=== PATIENT | male | born 1955 | race Caucasian/White ===

== ENCOUNTER 2017-01-25 22:01 | Inpatient (IN) ==
[2017-01-25] MEDS ORDERED: 0.9 % Sodium Chloride 1,000 ML IVC ONE (22:41)
--- NOTE | 2017-01-25 22:49 | Emergency Department Note ---
Disposition Clinical Impression: Ureterolithiasis Leukocytosis Qualifiers: Leukocytosis type: unspecified Qualified Code(s): D72.829 - Elevated white blood cell count, unspecified Disposition: Admitted As Inpatient Condition: Fair [facility]: [facility]Primary Care Provider[facility] - Forms: Work/School Release, ED Satisfaction Letter Time of Disposition: 23:59 Abdominal Pain HPI - General Chief Complaint: ED Abdominal Pain Stated Complaint: abd pain Time Seen by Provider: 01/25/17 22:04 Source: patient, EMS Nursing Notes Reviewed: Yes Vital Signs Reviewed: Yes - History of Present Illness HPI Narrative: 61-year-old male presents by EMS from the [facility] urgent care after initial evaluation for right lower quadrant abdominal pain and right flank pain that initially began this past Sunday. The patient has underwent laboratory testing as well as a CT of the abdomen and pelvis. He was found to have marked leukocytosis and was subsequently transferred to this facility for further evaluation. He states that he has had some nausea and vomiting upon the onset of symptoms, however has not had any vomiting since the day of onset. He complains of subjective fevers and chills. He also complains of approximately one month worth of dysuria. He denies any donnell hematuria or penile discharge. Pt Subjective Complaint: abdominal pain, flank pain Onset (ago): day(s) Consistency: constant Location: RLQ, R flank Pain Severity: moderate Pain Scale: 5 Quality: aching Radiation: R flank Improves with: nothing Worsens with: nothing Associated symptoms: Reports: nausea, vomiting, fever, chills, dysuria - Related Data Allergies Allergy/AdvReac Type Severity Reaction Status Date / Time No Known Allergies Allergy Verified 01/25/17 22:02 All systems ED: reviewed and negative except as stated. Constitutional: Reports: as per HPI, fever, chills. Denies: weakness, weight change Eyes: Denies: eye pain, eye discharge, vision change ENT ED: Denies: ear pain, throat pain, dental pain, hearing loss, epistaxis, congestion, dysphagia Cardiovascular: Denies: chest pain, palpitations, dyspnea on exertion, edema, syncope Respiratory: Denies: cough, dyspnea, wheezes, hemoptysis, stridor Gastrointestinal: Reports: as per HPI, abdominal pain, nausea, vomiting. Denies : diarrhea, constipation, hematemesis, melena, hematochezia Genitourinary: Reports: as per HPI, dysuria. Denies: urgency, frequency, hematuria Musculoskeletal: Reports: as per HPI, other (Right flank pain). Denies: back pain, neck pain, arthralgia, myalgia Integumentary: Denies: rash, abrasion, lesions Neurological: Denies: headache, weakness, numbness, paresthesias, confusion, abnormal gait, vertigo Psychiatric: Denies: anxiety, depression, suicidal thoughts, homicidal thoughts , auditory hallucinations, visual hallucinations Endocrine: Denies: fatigue Hematological/Lymphatic: Denies: easy bleeding, easy bruising Allergic/Immunologic: Denies: facial swelling, urticaria Abdominal Pain PMH - Past Medical History Medical history: Reports: arthritis, hyperlipidemia Male Surgical History: Reports: non-contributory Psychiatric history: Reports: other - Social History Smoking status: Current some day smoker Alcohol use: Reports: rarely Drug use: Reports: none Physical Exam - General Limitations: no limitations General appearance: alert, in no apparent distress - Head Head exam: atraumatic, normocephalic, normal inspection - Eye Eye exam: Present: normal appearance, PERRL, EOMI. Absent: nystagmus - ENT ENT exam: mucous membranes moist - Neck Neck exam: Present: normal inspection, full ROM, trachea midline - Respiratory Respiratory exam: Present: normal lung sounds bilaterally - Cardiovascular Cardiovascular exam: Present: regular rate, normal rhythm, normal heart sounds - Abdominal Exam Abdominal exam: Present: soft, tenderness, normal bowel sounds, tenderness at McBurney's Point. Absent: distention, guarding, rebound, rigidity Abdominal tenderness: Present: RLQ - Extremities Exam Extremities exam: Present: normal inspection, full ROM. Absent: tenderness, pedal edema - Back Exam Back exam: Present: full ROM, tenderness, CVA tenderness (R). Absent: CVA tenderness (L) - Neurological Exam Neurological exam: Present: alert, oriented X3 - Psychiatric Psychiatric exam: Present: normal affect, normal mood - Skin Skin exam: Present: warm, dry, intact, normal color Course Course Narrative: 1124: Spoke with Dr. Elizondo, urology cable television access coordinator. Dr. Elizondo states that the patient should be admitted to the hospitalist service for IV antibiotics and urology will see the patient tomorrow morning. 0016: I spoke with Dr. Mckeon of the hospitalist service. Dr. Mckeon has accepted patient for admission to the hospitalist service. I discussed this plan with Dr. Gifford. Dr. Gifford has had a [id number] evaluation with patient and agrees with this plan. Vital Signs Temperature 98.4 F 01/25/17 22:03 Pulse Rate 106 01/25/17 22:03 Respiratory Rate 18 01/25/17 22:03 Blood Pressure 122/77 01/25/17 22:03 O2 Sat by Pulse Oximetry 96 01/25/17 22:03 Temperature 98.4 F 01/25/17 22:03 Pulse Rate 110 01/26/17 00:02 Respiratory Rate 16 01/26/17 00:02 Blood Pressure 119/83 01/26/17 00:02 O2 Sat by Pulse Oximetry 95 01/26/17 00:02 Oxygen Delivery Oxygen Delivery Room Air Abdominal Pain - Medical Records Medical records reviewed: Yes I reviewed the patient's medical records. - Lab Data Lab results reviewed: Yes I reviewed the patient's lab results. Lab results narrative: Laboratory results reviewed from the patient's visit at the [facility] urgent care just prior to arrival. Lab Results 01/25/17 01/25/17 Range/Units 22:30 23:33 Lactic Acid 1.0 (0.5-2.2) mmol/L Urine Color Yellow (Yellow) Urine Clarity Clear (Clear) Urine pH 7.5 (5.0-8.0) pH Units Ur Specific [place] 1.022 (1.010-1.025) Urine Protein 100 H (Neg-Trace) mg/dL Urine Glucose (UA) Normal (Normal) mg/dL Urine Ketones 15 H (Negative) mg/dL Urine Blood Negative (Negative) Urine Nitrite Negative (Negative) Urine Bilirubin Large H (Negative) Urine Urobilinogen 4.0 H (Normal) mg/dL Ur Leukocyte Esterase Small H (Negative) Urine Microscopic RBC 5-15 H (0-3) per hpf Urine Microscopic WBC 5-15 H (0-3) per hpf Ur Squamous Epith Cells Many H (None-Few) per lpf Urine Bacteria None Seen (None-Few) per hpf Hyaline Casts None Seen (None-Few) per lpf Ur Culture Indicated? YES A (NO)
[2017-01-25] MEDS ORDERED: *HR* Morphine 2 MG/ML SYRINGE IVP ONE ×2 (22:54→23:51)
[2017-01-25] MEDS ORDERED: Ondansetron 4 MG/2 ML VIAL IVP ONE (22:54)
[2017-01-25 23:10] LABS: Bilirubin,Urine Large (Negative); Blood,Urine Negative (Negative); Clarity,Urine Clear (Clear); Color,Urine Yellow (Yellow); Glucose,Urine (UA) Normal (Normal); Ketones,Urine 15 mg/dL (Negative); Leukocyte Esterase,Urine Small (Negative); Nitrite,Urine Negative (Negative); PH,Urine 7.5 pH Units (5.0-8.0); Protein,Urine 100 mg/dL (Neg-Trace); Specific Gravity,Urine 1.022 (1.010-1.025)
[2017-01-25 23:13] LABS: Bacteria,Urine None Seen per hpf (None-Few); Hyaline Casts,Urine None Seen per lpf (None-Few); Squamous Epithelial Cell,Urine Many per lpf (None-Few)
[2017-01-26] MEDS ORDERED: Naloxone 0.4 MG/ML INJ IVP PRN ×2 (00:59→15:29)
[2017-01-26] MEDS ORDERED: *HR* OxyCODONE Immed Rel 5 MG TABLET PO PRN (00:59)
[2017-01-26] MEDS ORDERED: Ondansetron 4 MG/2 ML VIAL IVP PRN ×2 (00:59→15:29)
[2017-01-26] MEDS ORDERED: Acetaminophen 325 MG TABLET PO PRN ×2 (00:59→15:29)
--- NOTE | 2017-01-26 01:07 | Internal Med History&Physical ---
<Isma Patricia - Last Filed: 01/26/17 01:04> Date of Encounter: 01/26/17 Time of Encounter: 01:04 Assessment and Plan (1) Acute pyelonephritis Current visit: Yes Status: Acute 61 M hx of nephrolithiasis presents from [place] urgent care with chief complaint of right lower quadrant pelvic pain onset 2 days ago with intractable nausea and vomiting. Last episode of vomiting was yesterday. CT abdomen and pelvis shows right mild hydroureteronephrosis WBC 26 Afebrile Tachycardic Lactic acid 1.0 UA: Leukocyte esterase, WBC Patient has sepsis secondary to acute pyelonephritis with likely infected stone. Plan: IVF, ceftriaxone, NPO urology notified and will assess patient in morning Pain control Nausea control GI prophylaxis (2) Leukocytosis Current visit: Yes Status: Acute Secondary to acute pyelonephritis Plan: WBC Blood cultures Urine cultures IV ceftriaxone Qualifiers: Leukocytosis type: unspecified Qualified Code(s): D72.829 - Elevated white blood cell count, unspecified (3) Ureterolithiasis Current visit: Yes Status: Acute History of ureterolithiasis CT abdomen/pelvis shows 3 mm stone in the right ureterovesicular junction with mild right hydroureteronephrosis Plan: IV fluids Ceftriaxone Urology notified (4) DVT prophylaxis Current visit: Yes Status: Acute Heparin subcutaneous Internal Medicine - H&P: HPI Chief complaint: abdominal pain Admitted From: Home Plans for Post Hospital Care: Home History of present illness: Mr. Toscano is a 61 year old male presents with chief complaint of right lower quadrant abdominal pain, sharp, radiating to the side and back worsens with movement and improves with narcotic pain medication. 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 Thereafter he had over 10 bouts of nausea and vomiting throughout the day. He reports subjective fevers and chills. He denies hematemesis, hemoptysis. Denies diarrhea, melena, hematochezia. Denies increased urinary frequency, hematuria. Reports dysuria. Patient has history of kidney stones with his first account in 1974. Patient denies previous history of kidney disease, kidney infections. He was always able to pass a kidney stone. He reports poor oral intake. Past Med Surg Social Fam HX - Past Medical History Medical history: arthritis, hyperlipidemia, other (Kidney stones) Psychiatric history: anxiety, other - Past Surgical History Surgical History: no surgical history - Social History Smoking Status: Current some day smoker Smokeless Tobacco Status: No Alcohol use: rarely Drug use: none - Family History Father Hx Family Neurologic Disorders: Yes (Dementia, stroke) Internal Medicine - H&P: Meds Etodolac 400 mg PO BID 01/26/17 [History] Gabapentin [Neurontin] 300 mg PO TID 01/26/17 [History] diazePAM [Valium] 2.5 mg PO QID PRN 01/26/17 [History] Allergies No Known Allergies Allergy (Verified 01/25/17 22:02) All Systems PM: A 10-system review of systems was performed and is negative for pertinent findings except as documented above in the HPI. Review of systems: Constitutional: Denies fever, chills HEENT: Denies headache, vision changes, sore throat, rhinorrhea Heart: Denies chest pain palpitations Lungs: Forced chronic shortness of breath, denies cough Abdomen: Reports right lower quadrant abdominal pain, nausea, vomiting. Denies diarrhea Back: Reports low back pain on right side Kidney: Reports dysuria, denies hematuria, urinary frequency Extremities: Denies swelling, pain Neuro: Denies numbness, and tingling - Constitutional Vitals: Temp Pulse Resp BP Pulse Ox 98.4 F 110 16 119/83 95 01/25/17 22:03 01/26/17 00:02 01/26/17 00:02 01/26/17 00:02 01/26/17 00:02 - Other Additional findings: General: Alert and oriented to place time and situation. Without distress HEENT: Head atraumatic, normocephalic, EOMI, PERRLA, neck nontender to palpation , absent Lymphadenopathy, dry mucous membranes Heart: Regular rate and rhythm with no murmur Lungs: Clear to auscultation bilaterally, diminished Abdomen: Soft, tender to palpation in the right lower quadrant, positive bowel sounds, absent organomegaly. Negative Rovsing's, negative Carcamo's Extremities: Absent pedal edema, Skin: Warm and dry : No discharge, bleeding, Neuro: Cranial nerves II through XII intact, sensation equal bilaterally, strength upper and lower extremity 5/5, alert oriented 3 Vascular: Pedal and radialpulses 2 out of 4 <Sky Mckeon - Last Filed: 01/26/17 02:19> Date of Encounter: 01/26/17 Internal Medicine - H&P: HPI History of present illness: Mr. Toscano is a 61 year old male All Systems PM: A 10-system review of systems was performed and is negative for pertinent findings except as documented above in the HPI. - Constitutional Vitals: Temp Pulse Resp BP Pulse Ox 98.0 F 103 16 114/77 93 01/26/17 01:23 01/26/17 01:23 01/26/17 01:23 01/26/17 01:23 01/26/17 01:23 - Attending Attestation I examined this patient and my medical decision-making was reviewed with the Resident Physician, Dr Isma Patricia. I agree with the documented findings, disposition and treatment plan as described except to the extent set forth below. My findings are summarized below: Patient presented to the hospital with lower abdominal pain and flank pain. He also complains of dysuria. This was associated with subjective fevers and chills. On exam he is in no acute distress. Heart is regular. Lungs are clear. Abdomen soft. Plan: We will admit and treat for pyelonephritis, sepsis and acute kidney injury with IV Zosyn and IV fluids. We will follow blood cultures and sensitivities.
[2017-01-26] MEDS: Piperacillin/Tazobactam 3.375 GM in D5% in Water (Mini-Bag+) 100 ML IVPB SCH ×3 (02:09→16:37)
[2017-01-26] MEDS: 0.9 % Sodium Chloride 1,000 ML IVC SCH ×3 (02:10→16:36)
[2017-01-26 03:02] LABS: Lymphocytes % 6.5 %
[2017-01-26 03:03] LABS: Basophils # 0.1 K/mcL (0.0-0.2); Basophils % 0.3 %; Eosinophils # 0.1 K/mcL (0.0-0.6); Eosinophils % 0.2 %; Hematocrit 36.9 % (37.5-50.1); Hemoglobin 12.4 g/dL (12.9-16.9); Immature Granulocytes % 0.6 % (0-4); Lymphocytes # 1.7 K/mcL (0.6-4.6); Mean Corpuscular HGB Conc 33.6 g/dL (31.6-35.5); Mean Corpuscular Hemoglobin 30.6 pg (28.0-33.3); Mean Corpuscular Volume 91.1 fL (83.0-100.0); Mean Platelet Volume 9.8 fL (9.4-12.4); Monocytes # 0.7 K/mcL (0.0-1.3); Monocytes % 2.8 %; Neutrophils # 23.3 K/mcL (1.6-8.9); Red Blood Count 4.05 M/mcL (4.19-5.50); Segmented Neutrophils % 89.6 %
[2017-01-26 03:05] LABS: Albumin 2.1 g/dL (3.5-5.0); Albumin/Globulin Ratio 0.6 (1.1-2.2); Calcium 8.4 mg/dL (8.6-10.8); Globulin 3.8 g/dL (2.4-3.5); Magnesium 1.7 mg/dL (1.6-2.6); Potassium 4.5 mEq/L (3.5-4.5); Total Protein 5.9 g/dL (6.0-8.3)
[2017-01-26 03:25] LABS: Hepatitis B Surface Antigen Nonreactive (Nonreactive)
[2017-01-26 03:32] LABS: Platelet Count 96 K/mcL (140-400)
[2017-01-26 03:33] LABS: Platelet Estimate Decreased (Normal)
[2017-01-26 03:34] LABS: Reactive Lymphocytes Present (Not Present)
[2017-01-26] MEDS: *HR* Morphine 2 MG/ML SYRINGE IVP PRN ×2 (05:09→09:16)
[2017-01-26] MEDS ORDERED: *HR* Heparin 5,000 UNIT/ML VIAL SQ SCH (06:00)
[2017-01-26] MEDS ORDERED: Famotidine 20 MG/2 ML VIAL IVP SCH (06:00)
--- NOTE | 2017-01-26 08:17 | Urology - Consult Note ---
Date of Encounter: 01/26/17 Time of Encounter: 08:15 - Assessment and Plan (1) Leukocytosis Current Visit: Yes Status: Acute Assessment and plan: Continue broad-spectrum antibiotics at this time. Qualifiers: Leukocytosis type: unspecified Qualified Code(s): D72.829 - Elevated white blood cell count, unspecified (2) Ureterolithiasis Current Visit: Yes Status: Acute Assessment and plan: Will plan on taking the patient to the operative room today for right ureteroscopic stone extraction and ureteral stent placement. If patient has gross pus with placement of wire will only plan on placing stent. Urology CN:HPI Consult date: 01/26/17 Reason for consult Urology: Hydronephrosis Requesting physician: Isma Patricia History of present illness: Wilson is a 61-year-old male with a history of recent trip to the [place] urgent care secondary to severe right-sided flank pain. Patient was found on CT scan to have distal 2-3 stones approximately 2-3 mm in size. Patient was also found to have an elevated the CBC count of 26,000. Patient with low-grade fevers this morning. Patient also with nausea and vomiting over the past week. Past Med Surg Social Fam HX - Past Medical History Medical history: arthritis, hyperlipidemia, other (Kidney stones) Psychiatric history: anxiety, other - Past Surgical History Surgical History: no surgical history - Social History Smoking Status: Current some day smoker Smokeless Tobacco Status: No Alcohol use: rarely Drug use: none - Family History Father Family Member Ethnicity: Non- Living Status: Hx Family Neurologic Disorders: Yes (Dementia, stroke) Hx Family Psychosocial Disorders: Yes Medications and Allergies Etodolac 400 mg PO BID 01/26/17 [History] Gabapentin [Neurontin] 300 mg PO TID 01/26/17 [History] diazePAM [Valium] 2.5 mg PO QID PRN 01/26/17 [History] Allergies No Known Allergies Allergy (Verified 01/25/17 22:02) Review of Systems - Constitutional fever(s) - EENT Nose, mouth and throat: no dizziness - Cardiovascular no chest pain - Respiratory no cough - Gastrointestinal abdominal pain - Genitourinary as per HPI - Musculoskeletal back pain - Integumentary no erythema - Neurological no confusion - Psychiatric no anxiety - Hematologic/Lymphatic no easy bleeding Exam Initial Vital Signs Temp Pulse Resp BP Pulse Ox 98.4 F 106 18 122/77 96 01/25/17 22:03 01/25/17 22:03 01/25/17 22:03 01/25/17 22:03 01/25/17 22:03 - General physical appearance Present: well developed - Eyes Present: PERRL - ENT Present: normal nares - Neck Present: no masses - Respiratory Present: normal respiratory effort - Cardiovascular Cardiovascular exam IM: RRR - Abdomen Abdomen: Present: soft - Integumentary Present: no rash - Neurologic Present: normal coordination Urology Results - Labs 01/26/17 02:43 01/26/17 02:43 Abnormal lab results WBC 26.0 K/mcL (4.3-11.1) H 01/26/17 02:43 RBC 4.05 M/mcL (4.19-5.50) L 01/26/17 02:43 Hgb 12.4 g/dL (12.9-16.9) L 01/26/17 02:43 Hct 36.9 % (37.5-50.1) L 01/26/17 02:43 Plt Count 96 K/mcL (140-400) L 01/26/17 02:43 Neutrophils # 23.3 K/mcL (1.6-8.9) H 01/26/17 02:43 Reactive Lymphocytes Present (Not Present) A 01/26/17 02:43 Platelet Estimate Decreased (Normal) L 01/26/17 02:43 BUN 38 mg/dL (8-26) H 01/26/17 02:43 Creatinine 1.67 mg/dL (0.72-1.25) H 01/26/17 02:43 Est GFR ( Amer) 51 (> 60) L 01/26/17 02:43 Est GFR (Non-Af Amer) 42 (> 60) L 01/26/17 02:43 Calcium 8.4 mg/dL (8.6-10.8) L 01/26/17 02:43 Alkaline Phosphatase 133 Units/L (38-126) H 01/26/17 02:43 Serum Total Protein 5.9 g/dL (6.0-8.3) L 01/26/17 02:43 Albumin 2.1 g/dL (3.5-5.0) L 01/26/17 02:43 Globulin 3.8 g/dL (2.4-3.5) H 01/26/17 02:43 Albumin/Globulin Ratio 0.6 (1.1-2.2) L 01/26/17 02:43 Urine Protein 100 mg/dL (Neg-Trace) H 01/25/17 22:30 Urine Ketones 15 mg/dL (Negative) H 01/25/17 22:30 Urine Bilirubin Large (Negative) H 01/25/17 22:30 Urine Urobilinogen 4.0 mg/dL (Normal) H 01/25/17 22:30 Ur Leukocyte Esterase Small (Negative) H 01/25/17 22:30 Urine Microscopic RBC 5-15 per hpf (0-3) H 01/25/17 22:30 Urine Microscopic WBC 5-15 per hpf (0-3) H 01/25/17 22:30 Ur Squamous Epith Cells Many per lpf (None-Few) H 01/25/17 22:30 Ur Culture Indicated? YES (NO) A 01/25/17 22:30 All other labs normal. - Imaging CT scan - abdomen: image reviewed CT scan - pelvis: image reviewed Consult Discharge Plan - Plan [facility]errals: [facility] [Primary Care Provider] -
--- NOTE | 2017-01-26 10:30 | Event Note ---
<Jonathan Martinez R - Last Filed: 01/26/17 12:38> Date of Encounter: 01/26/17 Time of Encounter: 10:28 Patient seen and examined. Reports morphine helps his pain, but the Roxicodone only made him drowsy without relieving his pain. Has been denying tylenol or NSAIDs for fear of liver/kidney damage. Reports RLQ pain, radiating pain from right flank to right groin. Awaiting surgical removal of right 3mm ureter stone and further evaluation of pylonephritis. Continue IV fluids and IV antibiotics. Denies chest pain, dyspnea, cough, N/V/D, dysuria, or leg pain/swelling. <Dano Kim - Last Filed: 01/26/17 17:32> Date of Encounter: 01/26/17 Pt was admitted earlier today with acute pyelonephritis and obstructive uropathy due to stones. He is awaiting surgery. Exam Pleasant. Comfortable Heart reg Plan Continue IV abx OR today.
[2017-01-26] MEDS ORDERED: *HR* Morphine 2 MG/ML SYRINGE IVP PRN ×2 (10:50→13:16)
[2017-01-26 11:24] LABS: Hepatitis A Antibody IgM Nonreactive (Nonreactive); Hepatitis B Core IgM Nonreactive (Nonreactive); Hepatitis C Virus Antibody Nonreactive (Nonreactive)
--- NOTE | 2017-01-26 12:24 | Event Note ---
Date of Encounter: 01/26/17 Time of Encounter: 12:22 I saw Mr. Toscano today. He has a right ureteral stone and an elevated WBC. I had a cancellation in the OR and would be able to perform his right ureteroscopy, laser lithotripsy and stent placement more expeditiously. Case was discussed with Dr. Elizondo. Patient agrees to proceed with me. All risks were informed.
--- NOTE | 2017-01-26 13:10 | Anesthesia Evaluation PreOp ---
Date of Encounter: 01/26/17 Time of Encounter: 12:30 - Past History Planned Operation: ureteroscopic stone extraction, possible laser litho Cardiac History: Denies any Significant Hx Pulmonary History: Smoker (40 pack year history, hasn't smoked since hospitalization 3 days ago) ADDICTIONS COUNSELOR ASSISTANT History: Denies Any Significant HX Other Medical History: Denies Any Significant HX, GERD (occasional reflux) Anesthesia History: No Prior Anesthetic Complications, Past Anesthesia Alcohol Use: rarely Drug use: prescription drug abuse (Patient has a history of chronic valium use, up to four times a day. Has not had any since hospitalization.) Medications and Allergies Cyanocobalamin (Vitamin B-12) [Vitamin B12] 1,000 mcg PO DAILY 01/26/17 [History ] Etodolac 400 mg PO BID 01/26/17 [History] Gabapentin [Neurontin] 300 mg PO TID 01/26/17 [History] Multivitamin [Multi-Day Vitamins] 1 tab PO DAILY 01/26/17 [History] diazePAM [Valium] 2.5 mg PO QID PRN 01/26/17 [History] Allergies No Known Allergies Allergy (Verified 01/25/17 22:02) - Meds/Allergy Pre-op Review Medications Reviewed: Yes Allergies Reviewed: Yes Beta Blockers on Current Med List: No Anesthesia Results - Labs 01/26/17 02:43 01/26/17 02:43 Anesthesia Exam Selected Entries 01/26/17 10:42 Temperature 98.8 F Pulse Rate 102 Respiratory Rate 20 Blood Pressure 116/73 O2 Sat by Pulse Oximetry 96 Weight: 57 kg. NPO (# of Hours): over 8 hours of NPO status - HEENT Pupil (Motor): Pupils equal Mallampati: II Teeth: Missing Oral Opening: Greater than 3 (Full gonzalez) - ADDICTIONS COUNSELOR ASSISTANT LOC: Oriented (Patient with impressive tremor. Suspect benzo withdrawal. He has not had his routine valium for over 3 days.) - Cardiac Rhythm: Regular Murmur: Systolic - Pulmonary Breath Sounds: bilateral Clear Anesthesia Assess/Plan ASA Score: 3 Modified [place] Scale for Level of Consciousness: Cooperative, oriented, and tranquil Anesthetic Plan: General Monitoring Plan: Standard Monitors Recovery Plan: PACU (Patient was transferred from the [place] three days ago with urosepsis, elevated white count, tachycardia, etc. Has been on routine antibiotics, IV hydratiion with some improvement but needs to have ureteral stone treated. Discussed GA, risks. Patient wishes to proceed. Will provide benozodiazepams perioperatively.)
[2017-01-26] MEDS ORDERED: Acetaminophen IV 1,000 MG/100 ML INFUS..BTL IVPB ONE (13:16)
[2017-01-26] MEDS ORDERED: *HR* Midazolam HCl 2 MG/2 ML VIAL IVP PRN (13:16)
[2017-01-26] MEDS ORDERED: Ondansetron 4 MG/2 ML VIAL IVP ONE (13:16)
[2017-01-26] MEDS ORDERED: *HR* Propofol 200 MG/20 ML VIAL IVP ONE (13:21)
[2017-01-26] MEDS ORDERED: *HR* FentaNYL (PF) 100 MCG/2 ML VIAL ONE (13:21)
[2017-01-26] MEDS ORDERED: *HR* Midazolam HCl 5 MG/5 ML VIAL IVP ONE (13:21)
[2017-01-26] MEDS ORDERED: Lidocaine -MPF 2% 2 ML VIAL ONE (13:21)
[2017-01-26] MEDS ORDERED: Dexamethasone 4 MG/ML VIAL ONE (13:21)
[2017-01-26] MEDS ORDERED: *HR* Succinylcholine 200 MG/10 ML VIAL IVP ONE (13:21)
[2017-01-26] MEDS ORDERED: Ringers Solution, Lactated 1,000 ML ONE ×2 (13:43→15:01)
--- NOTE | 2017-01-26 13:43 | Operative Note ---
Date of procedure: 01/26/17 Pre-op diagnosis: Right ureteral stone Post-op diagnosis: same Procedure: Right ureteroscopy, basket stone extraction, and right ureteral stent placement. Implants: 6 [place] by 26 cm double-J stent. Complications: None. Anesthesia: SHADY Surgeon: James Mchugh Estimated blood loss (cc): 1 Specimen: right ureteral stone Condition: stable Disposition: PACU Procedure in Detail: Indications: Mr. Toscano is a 61-year-old gentleman who has a history of right flank pain. A CT scan showed distal right ureter stones. He elected to undergo a right ureteroscopy, laser lithotripsy, and stent placement. He is aware of the risks of the procedure including but not limited to bleeding, infection, injury to other structures, need for further procedures, stent irritation, and the risk of anesthesia. He is willing to proceed. Procedure: After informed consent was obtained the patient was brought back to the operating room and placed in supine position. A time out was performed. General anesthesia was administered and an LMA was placed. He was then placed in the lithotomy position. He was prepped and draped in the usual sterile fashion. Cystoscopy was performed. The anterior urethra was normal. There was no evidence of bladder tumors. The ureteral orifices were in the normal orthotopic position. The Zip wire was placed in the right ureteral orifice and brought into the kidney under fluoroscopic guidance. The distal ureter was dilated with the 8/10 Kos[place] real dilator. I then advanced the semirigid ureteroscope into the ureter. The stones were basket extracted. A 6 [place] by 26cm JJ stent was then placed with good curl seen in the kidney and the bladder. The dangle string was removed. The patient was then awakened from general anesthesia and brought to recovery room in good condition. All sponge, needle, and instrument counts were correct.
[2017-01-26] MEDS ORDERED: *HR* Metoprolol 5 MG/5 ML VIAL IVP ONE (14:21)
[2017-01-26] MEDS: *HR* Metoprolol 5 MG/5 ML VIAL IVP PRN ×2 (14:22→14:25)
[2017-01-26] MEDS ORDERED: diazePAM 10 MG/2 ML SYRINGE ONE (14:27)
[2017-01-26] MEDS: diazePAM 10 MG/2 ML SYRINGE IVP ONE ×2 (14:28→14:30)
[2017-01-26] MEDS ORDERED: *HR* Labetalol 20 MG/4 ML SYRINGE IVP ONE (14:47)
[2017-01-26] MEDS ORDERED: *HR* Labetalol 20 MG/4 ML SYRINGE IVP PRN (14:49)
[2017-01-26] MEDS ORDERED: diazePAM 10 MG/2 ML SYRINGE IVP ONE (14:50)
[2017-01-26] MEDS: CloNIDine Patch 0.1 MG PATCH (WEEKLY) TD ONE ×2 (15:01→15:56)
--- NOTE | 2017-01-26 15:18 | Event Note ---
Date of Encounter: 01/26/17 Time of Encounter: 15:14 After surgery, I visited patient in recovery room. He was somnolent and not arouseable. HR was 110 and BP was 106/62. Temperature had risen to 103 degrees. I called for an ICU bed and paged the hospitalist to communicate the events. Labs will be ordered. Vancomycin ordered.
[2017-01-26] MEDS ORDERED: *HR* OxyCODONE/APAP 5/325 TABLET PO PRN (15:29)
[2017-01-26] MEDS ORDERED: diazePAM 5 MG TABLET PO PRN (15:29)
[2017-01-26] MEDS: Vancomycin 1,000 MG in D5% in Water 250 ML IVPB ONE ×2 (15:34→15:41)
[2017-01-26] MEDS: Gabapentin 300 MG CAPSULE PO SCH ×2 (15:57→22:05)
[2017-01-26 16:00] LABS: Red Cell Distribution Width 13.2 % (11.5-14.5)
[2017-01-26 16:02] LABS: Hematocrit 33.7 % (37.5-50.1); Hemoglobin 11.2 g/dL (12.9-16.9); Immature Platelets 5.7 % (1.1-6.1); Mean Corpuscular HGB Conc 33.2 g/dL (31.6-35.5); Mean Corpuscular Hemoglobin 30.4 pg (28.0-33.3); Mean Corpuscular Volume 91.3 fL (83.0-100.0); Mean Platelet Volume 9.7 fL (9.4-12.4); Platelet Count 109 K/mcL (140-400); Red Blood Count 3.69 M/mcL (4.19-5.50)
[2017-01-26 16:11] LABS: Calcium 8.3 mg/dL (8.6-10.8); Potassium 4.5 mEq/L (3.5-4.5)
[2017-01-26 16:28] LABS: Basophils # 0.5 K/mcL (0.0-0.2); Dohle Bodies Present (Not Present); Lymphocytes # 0.5 K/mcL (0.6-4.6); Monocytes # 0.5 K/mcL (0.0-1.3); Neutrophils # 21.1 K/mcL (1.6-8.9); Platelet Estimate Slight Decrease (Normal); Reactive Lymphocytes Present (Not Present)
[2017-01-26] MEDS: *HR* Heparin 5,000 UNIT/ML VIAL SQ SCH (16:36)
[2017-01-26] MEDS: Famotidine 20 MG/2 ML VIAL IVP SCH (16:42)
[2017-01-26 17:14] LABS: Acinetobacter baumannii by PCR Not Detected (Not Detect); Enterococcus by PCR Not Detected (Not Detect); Escherichia coli by PCR ***DETECTED*** (Not Detect); Klebsiella oxytoca by PCR Not Detected (Not Detect); Klebsiella pneumoniae by PCR Not Detected (Not Detect); Serratia marcescens by PCR Not Detected (Not Detect); Staphylococcus aureus by PCR Not Detected (Not Detect); Streptococcus agalactiae(B)PCR Not Detected (Not Detect); Streptococcus by PCR Not Detected (Not Detect); Streptococcus pneumoniae PCR Not Detected (Not Detect); Streptococcus pyogenes (A) PCR Not Detected (Not Detect); blaKPC Carbapenem-Resist Gene Not Detected (Not Detect); mecA Methicillin-Resist Gene Not Detected (Not Detect); vanA/B Vancomycin-Resist Genes Not Detected (Not Detect)
[2017-01-26 17:15] LABS: Candida albicans by PCR Not Detected (Not Detect); Candida glabrata by PCR Not Detected (Not Detect); Candida krusei by PCR Not Detected (Not Detect); Candida parapsilosis by PCR Not Detected (Not Detect); Candida tropicalis by PCR Not Detected (Not Detect); Pseudomonas aeruginosa by PCR Not Detected (Not Detect)
--- NOTE | 2017-01-26 17:59 | Event Note ---
Date of Encounter: 01/26/17 Time of Encounter: 17:57 Mr. Toscano went to OR today and had stone extraction and stent. In PACU he became tachycardic and febrile. He was transferred to ICU. Currently he is resting comfortably. He is afebrile and no longer tachycardic. His BP is normal. His heart is regular and his lungs are clear anteriorly. Blood cx positive for gram neg rods. I/P 1. Sepsis due to gram neg bacteremia from urine source - on Zosyn. Received a dose of Vancomycin in PACU. 2. Urinary lithiasis. If remains stable will transfer out of ICU in AM.
[2017-01-26] MEDS ORDERED: Vancomycin 1,000 MG in D5% in Water 250 ML IVPB SCH (19:00)
[2017-01-26] MEDS ORDERED: Vancomycin 1,250 MG in D5% in Water 250 ML IVPB ONE (20:21)
[2017-01-27] MEDS: Piperacillin/Tazobactam 3.375 GM in D5% in Water (Mini-Bag+) 100 ML IVPB SCH ×3 (02:06→17:15)
[2017-01-27] MEDS: 0.9 % Sodium Chloride 1,000 ML IVC SCH ×3 (02:38→19:38)
[2017-01-27] MEDS: Famotidine 20 MG/2 ML VIAL IVP SCH (05:06)
[2017-01-27] MEDS: *HR* Heparin 5,000 UNIT/ML VIAL SQ SCH ×2 (05:06→17:15)
[2017-01-27 06:33] LABS: Red Blood Count 3.99 M/mcL (4.19-5.50)
[2017-01-27 06:35] LABS: Immature Platelets 6.8 % (1.1-6.1); Mean Corpuscular HGB Conc 33.3 g/dL (31.6-35.5); Mean Corpuscular Hemoglobin 30.1 pg (28.0-33.3); Mean Corpuscular Volume 90.2 fL (83.0-100.0); Mean Platelet Volume 10.5 fL (9.4-12.4); Red Cell Distribution Width 13.2 % (11.5-14.5)
[2017-01-27 06:46] LABS: BUN/Creatinine Ratio 18 (6-26); Blood Urea Nitrogen 25 mg/dL (8-26); Calcium 8.2 mg/dL (8.6-10.8); Carbon Dioxide 22 mEq/L (19-29); Chloride 108 mEq/L (98-109); Glucose 126 mg/dL (70-99); Osmolality,Calculated 290 (280-300); Potassium 4.6 mEq/L (3.5-4.5); Sodium 137 mEq/L (136-145); eGFR For African Americans > 60 (> 60); eGFR For Non-African Americans 52 (> 60)
--- NOTE | 2017-01-27 08:00 | Internal Med Progress Note ---
<JuanJonathan Daphne - Last Filed: 01/27/17 07:58> Date of Encounter: 01/27/17 Time of Encounter: 07:58 - Assessment and plan (1) Sepsis due to Gram negative bacteria Current Visit: Yes Status: Acute Assessment and plan: Temp elevated to 103.3, HR 112, RR 24 and BP 88/58, s/p right ureterscopy with stone removal and stent placement Known source of infection with pyelonephritis and positive blood cultures () - preliminary gram negative Continue Zosyn and Vancomycin Obtain repeat blood cultures Lactate 2.1 Currently in ICU and BP 90s/60s through the night - currently afebrile, vital signs stable (2) Acute pyelonephritis Current Visit: Yes Status: Acute Assessment and plan: Continue Zosyn and Vancomycin - preliminary blood cultures gram negative anirudh (3) Ureterolithiasis Current Visit: Yes Status: Acute Assessment and plan: POD#1 s/p right ureteroscopy with stone removal and stent placement Pain improving - on Morphine, will add Toradol prn (4) DVT prophylaxis Current Visit: Yes Status: Acute Assessment and plan: SCDs and SQ heparin - Subjective Interval history: Patient seen and examined. Reports to feeling weak this morning. Pain is more controlled than before. No other complaints. Denies chest pain, dyspnea, cough, N/V/D, dysuria, or leg pain/swelling. - Constitutional Vitals: Temp Pulse Resp BP Pulse Ox 97.6 F 73 18 90/65 94 01/27/17 07:29 01/27/17 07:00 01/27/17 07:00 01/27/17 07:00 01/27/17 07:00 General appearance: Present: A&O X 3, no acute distress, answers questions appropriately - Eye Eye exam: Present: sclera anicteric - ENT ENT exam: Present: mucous membranes moist - Respiratory Respiratory exam: Present: CTAB (diminished breath sounds). Absent: rales, rhonchi, wheezes - Cardiovascular Cardiovascular exam: Present: RRR, +S1, +S2. Absent: diastolic murmur, systolic murmur - GI/Abdominal GI/Abdominal exam: Present: normal bowel sounds, soft. Absent: distended, rigid , tenderness - Extremities Exam Extremities exam: Present: warm, radial pulses palpable and symmetrical. Absent : calf tenderness, pedal edema, tenderness - Neurological Exam Neurological exam: Present: alert, CN II-XII intact, no focal deficits Internal Medicine: Result - Labs CBC & Chem 7: 01/27/17 05:22 01/27/17 05:22 Labs: Short CBC 01/26/17 01/27/17 Range/Units 15:44 05:22 WBC 22.9 H 17.7 H (4.3-11.1) K/mcL Hgb 11.2 L 12.0 L (12.9-16.9) g/dL Hct 33.7 L 36.0 L (37.5-50.1) % Plt Count 109 L 104 L (140-400) K/mcL Neutrophils # 21.1 H (1.6-8.9) K/mcL BMP 01/26/17 01/27/17 15:44 05:22 Sodium 139 137 Potassium 4.5 4.6 H Chloride 108 108 Carbon Dioxide 22 22 BUN 30 H 25 Creatinine 1.51 H 1.38 H Glucose 109 H 126 H Calcium 8.3 L 8.2 L - Impressions Impressions Fluoroscopy 01/26/17 12:55 IMPRESSION: Intraprocedural fluoroscopic spot images as above. See separate procedure report for more information. D/ / Prince Dubose MD / Prince Dubose MD Interpreting Provider: Prince Dubose MD - VTE Documentation of Mechanical Device: Intermittent pneumatic compression device Consult Discharge Plan - Plan [facility]errals: [facility] [Primary Care Provider[facility] - <Dano Kim - Last Filed: 01/27/17 16:05> Date of Encounter: 01/27/17 - Assessment and plan (1) Sepsis Current Visit: Yes Status: Acute Qualifiers: Sepsis type: Escherichia coli Qualified Code(s): A41.51 - Sepsis due to Escherichia coli [E. coli] (2) Acute pyelonephritis Current Visit: Yes Status: Acute (3) Ureterolithiasis Current Visit: Yes Status: Acute (4) Tobacco abuse Current Visit: Yes Status: Chronic - Constitutional Vitals: Temp Pulse Resp BP Pulse Ox 97.6 F 52 14 84/59 99 01/27/17 12:00 01/27/17 15:00 08/12/17 15:00 01/27/17 15:00 01/27/17 15:00 Internal Medicine: Result - Labs CBC & Chem 7: 01/27/17 05:22 01/27/17 05:22 Labs: Short CBC 01/26/17 01/27/17 Range/Units 15:44 05:22 WBC 22.9 H 17.7 H (4.3-11.1) K/mcL Hgb 11.2 L 12.0 L (12.9-16.9) g/dL Hct 33.7 L 36.0 L (37.5-50.1) % Plt Count 109 L 104 L (140-400) K/mcL Neutrophils # 21.1 H (1.6-8.9) K/mcL BMP 01/26/17 01/27/17 15:44 05:22 Sodium 139 137 Potassium 4.5 4.6 H Chloride 108 108 Carbon Dioxide 22 22 BUN 30 H 25 Creatinine 1.51 H 1.38 H Glucose 109 H 126 H Calcium 8.3 L 8.2 L - Attending Attestation I examined this patient and my medical decision-making was reviewed with the Resident Physician on 01/27/17. I agree with the documented findings, disposition and treatment plan as described except to the extent set forth below. Mr. Toscano is currently admitted for E coli bacteremia related to acute pyelonephritis from obstructive uropathy from urinary lithiasis. He remains high risk due to acute sepsis. Mr Toscano feels somewhat better this AM. His BP has been on the lower side but he has been afebrile and not tachycardic now. All blood cultures are positive for E coli. No fever now. No chills. No abd pain. Breathing OK. Exam Alert. Comfortable Mucus mebranes dry Heart reg Lungs clear Abd nontender No edema I/P 1. E coli bacteremia/sepsis 2. Pyelonephritis 3. Urinary lithiasis Further diagnoses and plan as above.
--- NOTE | 2017-01-27 09:18 | Urology Progress Note ---
Date of Encounter: 01/27/17 Time of Encounter: 09:16 - Assessment and Plan (1) Leukocytosis Current Visit: Yes Status: Acute Assessment and plan: continue broad spec abx until cultures return Qualifiers: Leukocytosis type: unspecified Qualified Code(s): D72.829 - Elevated white blood cell count, unspecified (2) Ureterolithiasis Current Visit: Yes Status: Acute Assessment and plan: sp removal and stenting. stent to stay in place for 2-3 weeks. recommend to keep catheter until tomorrow to allow for maximal drainage of urinary system. Progress Note Narrative: Patient seen. feeling better this am. still weak. + gram neg blood cultures. Objective Initial Vital Signs Temp Pulse Resp BP Pulse Ox 98.4 F 106 18 122/77 96 01/25/17 22:03 01/25/17 22:03 01/25/17 22:03 01/25/17 22:03 01/25/17 22:03 - General physical appearance Present: well developed - Abdomen Present: soft - Genitourinary Present: other (urine dark yellow in tubing. ) - Labs 01/27/17 05:22 01/27/17 05:22 Diabetes panel 01/26/17 01/27/17 Range/Units 15:44 05:22 Sodium 139 137 (136-145) mEq/L Potassium 4.5 4.6 H (3.5-4.5) mEq/L Chloride 108 108 (98-109) mEq/L Carbon Dioxide 22 22 (19-29) mEq/L BUN 30 H 25 (8-26) mg/dL Creatinine 1.51 H 1.38 H (0.72-1.25) mg/dL Glucose 109 H 126 H (70-99) mg/dL Calcium 8.3 L 8.2 L (8.6-10.8) mg/dL Calcium panel 01/26/17 01/27/17 Range/Units 15:44 05:22 Calcium 8.3 L 8.2 L (8.6-10.8) mg/dL Pituitary panel 01/26/17 01/27/17 Range/Units 15:44 05:22 Sodium 139 137 (136-145) mEq/L Potassium 4.5 4.6 H (3.5-4.5) mEq/L Chloride 108 108 (98-109) mEq/L Carbon Dioxide 22 22 (19-29) mEq/L BUN 30 H 25 (8-26) mg/dL Creatinine 1.51 H 1.38 H (0.72-1.25) mg/dL Glucose 109 H 126 H (70-99) mg/dL Calcium 8.3 L 8.2 L (8.6-10.8) mg/dL Adrenal panel 01/26/17 01/27/17 Range/Units 15:44 05:22 Sodium 139 137 (136-145) mEq/L Potassium 4.5 4.6 H (3.5-4.5) mEq/L Chloride 108 108 (98-109) mEq/L Carbon Dioxide 22 22 (19-29) mEq/L BUN 30 H 25 (8-26) mg/dL Creatinine 1.51 H 1.38 H (0.72-1.25) mg/dL Glucose 109 H 126 H (70-99) mg/dL Calcium 8.3 L 8.2 L (8.6-10.8) mg/dL - VTE Documentation of Mechanical Device: Intermittent pneumatic compression device Consult Discharge Plan - Plan [facility]errals: [facility] [Primary Care Provider] -
[2017-01-27] MEDS ORDERED: Ketorolac 15 MG/ML VIAL IVP ONE (10:11)
[2017-01-27] MEDS ORDERED: Ketorolac 15 MG/ML VIAL IVP PRN (10:12)
[2017-01-27] MEDS: *HR* Morphine 2 MG/ML SYRINGE IVP PRN (10:20)
[2017-01-27] MEDS: Gabapentin 300 MG CAPSULE PO SCH ×3 (10:22→19:41)
[2017-01-27] MEDS ORDERED: 0.9 % Sodium Chloride 1,000 ML IVC ONE (17:09)
[2017-01-27] MEDS ORDERED: Vancomycin 1,000 MG in D5% in Water 250 ML IVPB SCH (21:00)
[2017-01-28] MEDS: Piperacillin/Tazobactam 3.375 GM in D5% in Water (Mini-Bag+) 100 ML IVPB SCH ×2 (02:07→10:07)
[2017-01-28] MEDS: *HR* Heparin 5,000 UNIT/ML VIAL SQ SCH (05:51)
[2017-01-28] MEDS: Famotidine 20 MG/2 ML VIAL IVP SCH (05:51)
[2017-01-28] MEDS: 0.9 % Sodium Chloride 1,000 ML IVC SCH ×2 (07:25→18:24)
[2017-01-28] MEDS: *HR* Morphine 2 MG/ML SYRINGE IVP PRN (07:38)
[2017-01-28] MEDS: Gabapentin 300 MG CAPSULE PO SCH ×2 (07:40→19:58)
--- NOTE | 2017-01-28 08:37 | Internal Med Progress Note ---
<Lyubov Dowell - Last Filed: 01/28/17 14:21> Date of Encounter: 01/28/17 Time of Encounter: 08:33 - Assessment and plan (1) Sepsis due to Gram negative bacteria Current Visit: Yes Status: Acute Assessment and plan: Temp elevated to 103.3, HR 112, RR 24 and BP 88/58, s/p right ureterscopy with stone removal and stent placement Known source of infection with pyelonephritis and positive blood cultures (; 01/26/17) - preliminary gram negative rods, E. coli Patient is afebrile, BP has been stable in the 120's overnight. Plan: -Continue Zosyn Day 3 -Obtain repeat blood cultures today -Will transfer out of ICU to tele bed -Most likely will be able to switch to PO abx tomorrow, anticipate discharge tomorrow if stable (2) Acute pyelonephritis Current Visit: Yes Status: Acute Assessment and plan: 01/26 blood cultures growing gram negative rods, awaiting final report and sensitivities. 01/25 BC grew E. coli. Zosyn Day 3 Urology consulted, appreciate their recommendations Plan: -Will repeat BC today -Continue IVF -Continue Zosyn as culures growing gram neg rods, E. coli (3) Ureterolithiasis Current Visit: Yes Status: Acute Assessment and plan: POD#2 right ureteroscopy with stone removal and stent placement Pain improving - had an episode of right flank pain this morning Plan: -Continue Morphine and Toradol prn (4) Tobacco abuse Current Visit: Yes Status: Chronic (5) DVT prophylaxis Current Visit: Yes Status: Acute Assessment and plan: SCDs and SQ heparin - Subjective Interval history: Patient seen and examined. He reports that he was feeling better until around 0430 when he started noticing right flank pain. He states that it is aching and constant, wrapping around to his abdomen and groin. He has gotten some relief with taking pressure off of his back. He did receive morphine, but states it hasn't relieved the pain yet. - Constitutional Vitals: Temp Pulse Resp BP Pulse Ox 98.0 F 65 16 123/86 90 01/28/17 08:10 01/28/17 07:41 01/28/17 07:00 01/28/17 07:00 01/28/17 07:00 General appearance: Present: cooperative, mild distress, A&O X 3, pleasant, answers questions appropriately - Head Head exam: Present: atraumatic, normocephalic - Respiratory Respiratory exam: Present: CTAB. Absent: accessory muscle use, rales, rhonchi, wheezes - Cardiovascular Cardiovascular exam: Present: RRR, +S1, +S2. Absent: diastolic murmur, gallop, rubs, systolic murmur - GI/Abdominal GI/Abdominal exam: Present: firm, normal bowel sounds, tenderness (RLQ), no peritoneal signs. Absent: mass - Extremities Exam Extremities exam: Present: normal capillary refill, warm, radial pulses palpable and symmetrical. Absent: calf tenderness, cyanotic, pedal edema, tenderness - Back Exam Back exam: Present: CVA tenderness (R), normal inspection. Absent: rash noted - Neurological Exam Neurological exam: Present: oriented X3, no focal deficits. Absent: facial droop, speech deficit - Psychiatric Psychiatric exam: Present: normal affect, normal mood - Skin Skin exam: Present: dry, intact, normal color, warm. Absent: erythema Internal Medicine: Result - Labs CBC & Chem 7: 01/27/17 05:22 01/27/17 05:22 - VTE Documentation of Mechanical Device: Intermittent pneumatic compression device Consult Discharge Plan - Plan [facility]errals: [facility] [Primary Care Provider] - <Dano Kim - Last Filed: 01/28/17 18:02> Date of Encounter: 01/28/17 - Assessment and plan (1) Sepsis Current Visit: Yes Status: Acute Qualifiers: Sepsis type: Escherichia coli Qualified Code(s): A41.51 - Sepsis due to Escherichia coli [E. coli] (2) Acute pyelonephritis Current Visit: Yes Status: Acute (3) Ureterolithiasis Current Visit: Yes Status: Acute (4) Tobacco abuse Current Visit: Yes Status: Chronic - Constitutional Vitals: Temp Pulse Resp BP Pulse Ox 98.1 F 91 16 99/64 92 01/28/17 16:00 01/28/17 16:00 01/28/17 16:00 01/28/17 16:00 01/28/17 16:00 Internal Medicine: Result - Labs CBC & Chem 7: 01/27/17 05:22 01/27/17 05:22 - Attending Attestation I examined this patient and my medical decision-making was reviewed with the Resident Physician on 01/28/17. I agree with the documented findings, disposition and treatment plan as described except to the extent set forth below. Mr. Toscano is currently admitted for E coli bacteremia and pyelo. He remains high risk due to bacteremia and need for IV abx Mr. Toscano had a drop in blood pressure yesterday afternoon. Has been better overnight. No fever or chills. Sitting up in chair. Exam Alert. comfortable Mucus memrbranes moist Heart reg No wheeze No edema I/P 1. E coli sepsis 2. Pyelo Further diagnoses and plan as above.
--- NOTE | 2017-01-28 09:44 | Urology Progress Note ---
Date of Encounter: 01/28/17 Time of Encounter: 09:42 - Assessment and Plan (1) Leukocytosis Current Visit: Yes Status: Acute Qualifiers: Leukocytosis type: unspecified Qualified Code(s): D72.829 - Elevated white blood cell count, unspecified (2) Ureterolithiasis Current Visit: Yes Status: Acute Assessment and plan: sp removal and stenting. patient will need 2 weeks total of abx. Will continue to follow. ok to remove catheter per primary team. Progress Note Narrative: pod 2 from right stone extraction and stenting. patient had one episode of right flank pain this am which was either a back muscle spasm or stent discomfort. this has improved Objective Initial Vital Signs Temp Pulse Resp BP Pulse Ox 98.4 F 106 18 122/77 96 01/25/17 22:03 01/25/17 22:03 01/25/17 22:03 01/25/17 22:03 01/25/17 22:03 - General physical appearance Present: well developed - Abdomen Present: soft - Labs 01/27/17 05:22 01/27/17 05:22 - VTE Documentation of Mechanical Device: Intermittent pneumatic compression device Consult Discharge Plan - Plan [facility]errals: [facility] [Primary Care Provider] -
[2017-01-28] MEDS ORDERED: *HR* OxyCODONE/APAP 5/325 TABLET PO PRN (11:28)
[2017-01-28] MEDS ORDERED: Ondansetron 4 MG/2 ML VIAL IVP PRN ×2 (11:28→18:13)
[2017-01-28] MEDS ORDERED: Ketorolac 15 MG/ML VIAL IVP PRN (11:28)
[2017-01-28] MEDS ORDERED: *HR* Morphine 2 MG/ML SYRINGE IVP PRN ×2 (11:28→18:13)
[2017-01-28] MEDS ORDERED: Acetaminophen 325 MG TABLET PO PRN ×2 (11:28→18:13)
[2017-01-28] MEDS ORDERED: diazePAM 5 MG TABLET PO PRN (11:28)
[2017-01-28] MEDS ORDERED: Naloxone 0.4 MG/ML INJ IVP PRN ×2 (11:28→18:13)
[2017-01-28] MEDS ORDERED: 0.9 % Sodium Chloride 1,000 ML IVC SCH (11:28)
[2017-01-28] MEDS ORDERED: Gabapentin 300 MG CAPSULE PO SCH (15:00)
[2017-01-28] MEDS ORDERED: Piperacillin/Tazobactam 3.375 GM in D5% in Water (Mini-Bag+) 100 ML IVPB SCH (18:00)
[2017-01-28] MEDS ORDERED: *HR* Heparin 5,000 UNIT/ML VIAL SQ SCH (18:00)
[2017-01-28] MEDS: Ketorolac 15 MG/ML VIAL IVP PRN (22:36)
[2017-01-29 01:14] LABS: Calcium 7.7 mg/dL (8.6-10.8); Potassium 3.7 mEq/L (3.5-4.5)
[2017-01-29 01:16] LABS: Hematocrit 33.5 % (37.5-50.1); Hemoglobin 11.2 g/dL (12.9-16.9); Mean Corpuscular HGB Conc 33.4 g/dL (31.6-35.5); Mean Corpuscular Hemoglobin 29.8 pg (28.0-33.3); Mean Corpuscular Volume 89.1 fL (83.0-100.0); Mean Platelet Volume 10.9 fL (9.4-12.4); Platelet Count 101 K/mcL (140-400); Red Blood Count 3.76 M/mcL (4.19-5.50); Red Cell Distribution Width 13.3 % (11.5-14.5)
[2017-01-29] MEDS: Piperacillin/Tazobactam 3.375 GM in D5% in Water (Mini-Bag+) 100 ML IVPB SCH ×3 (03:21→17:42)
[2017-01-29] MEDS: diazePAM 5 MG TABLET PO PRN ×3 (03:22→20:23)
[2017-01-29] MEDS: 0.9 % Sodium Chloride 1,000 ML IVC SCH ×3 (04:37→20:08)
[2017-01-29] MEDS ORDERED: Famotidine 20 MG/2 ML VIAL IVP SCH (06:00)
[2017-01-29] MEDS: *HR* Heparin 5,000 UNIT/ML VIAL SQ SCH ×3 (06:34→17:41)
[2017-01-29] MEDS: Famotidine 20 MG/2 ML VIAL IVP SCH (06:34)
--- NOTE | 2017-01-29 08:05 | Urology Progress Note ---
Date of Encounter: 01/29/17 Time of Encounter: 08:04 - Assessment and Plan (1) Leukocytosis Current Visit: Yes Status: Acute Qualifiers: Leukocytosis type: unspecified Qualified Code(s): D72.829 - Elevated white blood cell count, unspecified (2) Ureterolithiasis Current Visit: Yes Status: Acute Assessment and plan: sp removal and stenting. doing well. will continue to follow. will remove de la torre. Progress Note Narrative: patient seen. still in ICU secondary to bed availability. feeling ok. Objective Initial Vital Signs Temp Pulse Resp BP Pulse Ox 98.4 F 106 18 122/77 96 01/25/17 22:03 01/25/17 22:03 01/25/17 22:03 01/25/17 22:03 01/25/17 22:03 - General physical appearance Present: well developed - Abdomen Present: soft - Genitourinary Present: other (urine clear) - Labs 01/29/17 00:41 01/29/17 00:41 Diabetes panel 01/29/17 Range/Units 00:41 Sodium 138 (136-145) mEq/L Potassium 3.7 (3.5-4.5) mEq/L Chloride 109 (98-109) mEq/L Carbon Dioxide 23 (19-29) mEq/L BUN 21 (8-26) mg/dL Creatinine 1.50 H (0.72-1.25) mg/dL Glucose 95 (70-99) mg/dL Calcium 7.7 L (8.6-10.8) mg/dL Calcium panel 01/29/17 Range/Units 00:41 Calcium 7.7 L (8.6-10.8) mg/dL Pituitary panel 01/29/17 Range/Units 00:41 Sodium 138 (136-145) mEq/L Potassium 3.7 (3.5-4.5) mEq/L Chloride 109 (98-109) mEq/L Carbon Dioxide 23 (19-29) mEq/L BUN 21 (8-26) mg/dL Creatinine 1.50 H (0.72-1.25) mg/dL Glucose 95 (70-99) mg/dL Calcium 7.7 L (8.6-10.8) mg/dL Adrenal panel 01/29/17 Range/Units 00:41 Sodium 138 (136-145) mEq/L Potassium 3.7 (3.5-4.5) mEq/L Chloride 109 (98-109) mEq/L Carbon Dioxide 23 (19-29) mEq/L BUN 21 (8-26) mg/dL Creatinine 1.50 H (0.72-1.25) mg/dL Glucose 95 (70-99) mg/dL Calcium 7.7 L (8.6-10.8) mg/dL - VTE Documentation of Mechanical Device: Intermittent pneumatic compression device Consult Discharge Plan - Plan Referrals: [facility] [Primary Care Provider] -
[2017-01-29] MEDS: Gabapentin 300 MG CAPSULE PO SCH ×3 (09:10→20:22)
--- NOTE | 2017-01-29 09:12 | Internal Med Progress Note ---
<Jonathan Martinez - Last Filed: 01/29/17 14:54> Date of Encounter: 01/29/17 Time of Encounter: 09:09 - Assessment and plan (1) Sepsis due to Gram negative bacteria Current Visit: Yes Status: Acute Assessment and plan: Temp elevated to 103.3, HR 112, RR 24 and BP 88/58, s/p right ureterscopy with stone removal and stent placement Known source of infection with pyelonephritis and positive blood cultures (; 01/26/17; 01/28/17) - preliminary gram negative rods, E. coli Patient is afebrile, BP has been stable in the 120's overnight. Plan: -Continue Zosyn Day 4 -[facility] CT abdomen/pelvis due to persistent bacteremia to evaluate for perinephric abscess - Add duonebs q6h for mild cough - lungs clear, long-standing history of smoking (2) Acute pyelonephritis Current Visit: Yes Status: Acute Assessment and plan: 01/29 blood cultures remain positive - gram positive rods. 01/26 blood cultures growing gram negative rods, awaiting final report and sensitivities. / BC grew E. coli. Zosyn Day 4 Urology consulted, appreciate their recommendations Plan: -Continue IVF -Continue Zosyn as culures growing gram neg rods, E. coli - CT abd/pelivs to evaluate for perineprhic abscess (3) Ureterolithiasis Current Visit: Yes Status: Acute Assessment and plan: POD#3 right ureteroscopy with stone removal and stent placement Pain improving Plan: -Continue Morphine and Toradol prn (4) DVT prophylaxis Current Visit: Yes Status: Acute Assessment and plan: SCDs and SQ heparin - Subjective Interval history: Patient seen and examined. Reports to feeling weak this morning. Pain is more controlled than before. Reports some mild cough, but no shortness of breath. Denies chest pain, N/V/D, dysuria, or leg pain/swelling. - Constitutional Vitals: Temp Pulse Resp BP Pulse Ox 98.6 F 65 18 126/68 94 01/29/17 07:27 01/29/17 04:00 01/29/17 04:00 01/29/17 04:00 01/29/17 04:00 General appearance: Present: cooperative, mild distress, A&O X 3, pleasant, answers questions appropriately - Head Head exam: Present: atraumatic, normocephalic - Eye Eye exam: Present: sclera anicteric - ENT ENT exam: Present: mucous membranes moist - Respiratory Respiratory exam: Present: CTAB. Absent: rales, rhonchi, wheezes - Cardiovascular Cardiovascular exam: Present: RRR, +S1, +S2. Absent: diastolic murmur, systolic murmur - GI/Abdominal GI/Abdominal exam: Present: normal bowel sounds, soft. Absent: distended, rigid , tenderness - Extremities Exam Extremities exam: Present: warm, radial pulses palpable and symmetrical. Absent : pedal edema, tenderness - Neurological Exam Neurological exam: Present: alert, CN II-XII intact, oriented X3, no focal deficits Internal Medicine: Result - Labs CBC & Chem 7: 01/29/17 00:41 01/29/17 00:41 Labs: Short CBC 01/29/17 Range/Units 00:41 WBC 14.6 H (4.3-11.1) K/mcL Hgb 11.2 L (12.9-16.9) g/dL Hct 33.5 L (37.5-50.1) % Plt Count 101 L (140-400) K/mcL BMP 01/29/17 00:41 Sodium 138 Potassium 3.7 Chloride 109 Carbon Dioxide 23 BUN 21 Creatinine 1.50 H Glucose 95 Calcium 7.7 L - VTE Documentation of Mechanical Device: Intermittent pneumatic compression device Consult Discharge Plan - Plan Referrals: [facility] [Primary Care Provider] - <Dano Kim - Last Filed: 01/29/17 15:57> Date of Encounter: 01/29/17 - Assessment and plan (1) Sepsis Current Visit: Yes Status: Acute Assessment and plan: Currently on IV Zosyn for pansensitive E coli. Blood cx persistently positive. Will ask ID for evaluation. Qualifiers: Sepsis type: Escherichia coli Qualified Code(s): A41.51 - Sepsis due to Escherichia coli [E. coli] (2) Acute pyelonephritis Current Visit: Yes Status: Acute (3) Ureterolithiasis Current Visit: Yes Status: Acute (4) Tobacco abuse Current Visit: Yes Status: Chronic (5) CKD (chronic kidney disease) stage 3, GFR 30-59 ml/min Current Visit: Yes Status: Suspected Assessment and plan: Following to see if persists. (6) Severe protein-calorie malnutrition Current Visit: Yes Status: Chronic - Constitutional Vitals: Temp Pulse Resp BP Pulse Ox 97.8 F 68 18 118/71 94 01/29/17 15:06 01/29/17 12:00 01/29/17 12:00 01/29/17 12:00 01/29/17 12:00 Internal Medicine: Result - Labs CBC & Chem 7: 01/29/17 00:41 01/29/17 00:41 Labs: Short CBC 01/29/17 Range/Units 00:41 WBC 14.6 H (4.3-11.1) K/mcL Hgb 11.2 L (12.9-16.9) g/dL Hct 33.5 L (37.5-50.1) % Plt Count 101 L (140-400) K/mcL BMP 01/29/17 00:41 Sodium 138 Potassium 3.7 Chloride 109 Carbon Dioxide 23 BUN 21 Creatinine 1.50 H Glucose 95 Calcium 7.7 L - Impressions Impressions Abdomen/Pelvis CT 01/29/17 08:24 IMPRESSION: 1. Interval placement of right ureteral stent with decompression of the right renal collecting system. Nonobstructive left-sided nephrolithiasis. 2. New moderate bilateral pleural effusions, intra-abdominal ascites and anasarca suggesting cardiac disease. 3. No additional acute findings within the abdomen or pelvis. Colonic diverticulosis with no acute features. D/ / 01/29/2017 13:33:31 Quentin Marin MD / diallo Interpreting Provider: Quentin Marin MD - Attending Attestation I examined this patient and my medical decision-making was reviewed with the Resident Physician on 01/29/17. I agree with the documented findings, disposition and treatment plan as described except to the extent set forth below. Mr. Toscano is currently admitted for acute pyelonephritis and obstructive uropathy. He is s/p stenting. He remains high risk due to potential for worsening infection. Mr Toscano still does not feel well. He has been afebrile today. He has really no appetite and has not eaten much. BP has been OK overnight. No further pain at this time. Exam Alert. Comfortable Mucus membranes moist Heart reg No wheeze Abd soft I/P 1. E. coli sepsis 2. Pyelonephritis Further diagnoses and plan as above.
[2017-01-29 09:32] LABS: Acinetobacter baumannii by PCR Not Detected (Not Detect); Enterococcus by PCR Not Detected (Not Detect); Staphylococcus aureus by PCR Not Detected (Not Detect); Streptococcus agalactiae(B)PCR Not Detected (Not Detect); Streptococcus by PCR Not Detected (Not Detect); Streptococcus pneumoniae PCR Not Detected (Not Detect); Streptococcus pyogenes (A) PCR Not Detected (Not Detect); blaKPC Carbapenem-Resist Gene Not Detected (Not Detect); mecA Methicillin-Resist Gene Not Detected (Not Detect); vanA/B Vancomycin-Resist Genes Not Detected (Not Detect)
[2017-01-29 09:33] LABS: Candida albicans by PCR Not Detected (Not Detect); Candida glabrata by PCR Not Detected (Not Detect); Candida krusei by PCR Not Detected (Not Detect); Candida parapsilosis by PCR Not Detected (Not Detect); Candida tropicalis by PCR Not Detected (Not Detect); Escherichia coli by PCR ***DETECTED*** (Not Detect); Klebsiella oxytoca by PCR Not Detected (Not Detect); Klebsiella pneumoniae by PCR Not Detected (Not Detect); Pseudomonas aeruginosa by PCR Not Detected (Not Detect); Serratia marcescens by PCR Not Detected (Not Detect)
[2017-01-29] MEDS: Ipratropium/Albuterol Neb 3 ML IH SCH ×3 (09:36→21:34)
[2017-01-29] MEDS ORDERED: Aminoglycoside Consult 1 EACH MC ONE (13:26)
[2017-01-29] MEDS: Ketorolac 15 MG/ML VIAL IVP PRN (20:22)
[2017-01-30] MEDS: Piperacillin/Tazobactam 3.375 GM in D5% in Water (Mini-Bag+) 100 ML IVPB SCH ×2 (02:14→08:36)
[2017-01-30] MEDS: Ipratropium/Albuterol Neb 3 ML IH SCH ×4 (03:42→21:36)
[2017-01-30] MEDS: *HR* Heparin 5,000 UNIT/ML VIAL SQ SCH ×2 (06:04→16:55)
[2017-01-30] MEDS: Famotidine 20 MG/2 ML VIAL IVP SCH (06:04)
[2017-01-30] MEDS: 0.9 % Sodium Chloride 1,000 ML IVC SCH ×2 (06:05→20:24)
[2017-01-30 06:34] LABS: Hematocrit 33.5 % (37.5-50.1); Hemoglobin 11.7 g/dL (12.9-16.9); Immature Platelets 10.3 % (1.1-6.1); Mean Corpuscular HGB Conc 34.9 g/dL (31.6-35.5); Mean Corpuscular Hemoglobin 31.1 pg (28.0-33.3); Mean Corpuscular Volume 89.1 fL (83.0-100.0); Mean Platelet Volume 11.3 fL (9.4-12.4); Red Blood Count 3.76 M/mcL (4.19-5.50); Red Cell Distribution Width 13.3 % (11.5-14.5)
[2017-01-30 06:47] LABS: BUN/Creatinine Ratio 10 (6-26); Blood Urea Nitrogen 15 mg/dL (8-26); Calcium 8.2 mg/dL (8.6-10.8); Carbon Dioxide 27 mEq/L (19-29); Chloride 109 mEq/L (98-109); Glucose 105 mg/dL (70-99); Osmolality,Calculated 295 (280-300); Sodium 142 mEq/L (136-145); eGFR For African Americans > 60 (> 60); eGFR For Non-African Americans 50 (> 60)
[2017-01-30 06:48] LABS: Potassium 3.3 mEq/L (3.5-4.5)
[2017-01-30] MEDS: Gabapentin 300 MG CAPSULE PO SCH (08:33)
--- NOTE | 2017-01-30 10:30 | Internal Med Progress Note ---
<Jonathan Martinez - Last Filed: 01/30/17 16:04> Date of Encounter: 01/30/17 Time of Encounter: 10:28 - Assessment and plan (1) Sepsis due to Gram negative bacteria Current Visit: Yes Status: Acute Assessment and plan: Temp elevated to 103.3, HR 112, RR 24 and BP 88/58, s/p right ureterscopy with stone removal and stent placement Known source of infection with pyelonephritis and positive blood cultures ( & 01/26/17 - E.coli: frias-sensitive) (01/28/17 - preliminary gram negative rods) . Patient is afebrile, BP has been stable overnight. Reports a history of tick bites this past spring and an illness at the end of November. Will evaluate for Lyme, Anaplasomosis, and Ehrlichiosis. ID consulted - appreciate recommendations Plan: -Will switch antibiotic to Rocephin -Will transfer out of ICU to tele bed when available -CT abdomen/pelvis: New moderate bilateral pleural effusions, intra-abdominal ascites and anasarca suggesting cardiac disease. No additional acute findings within the abdomen or pelvis. Colonic diverticulosis with no acute features. -Echo: LVEF 65%. Normal left ventricular size and systolic function. Normal diastolic function of the left ventricle. Normal right ventricular size and function. No significant valvular dysfunction. No pulmonary hypertension. -Add duonebs q6h for mild cough - lungs clear on exam, long-standing history of smoking (2) Acute pyelonephritis Current Visit: Yes Status: Acute Assessment and plan: 01/28 blood cultures remain positive - gram positive rods / blood cultures growing gram negative rods, awaiting final report and sensitivities. / BC grew E. coli. 5 days of Zosyn - switch antibiotics Urology consulted, appreciate their recommendations Plan: -Continue IVF -Switch to Rocephin as cultures growing gram neg rods, E. coli - frias-sensitive -CT abd/pelivs showed no abscess or acute process (3) Ureterolithiasis Current Visit: Yes Status: Acute Assessment and plan: POD#4 s/p right ureteroscopy with stone removal and stent placement Pain improving Plan: -Continue Morphine and Toradol prn (4) DVT prophylaxis Current Visit: Yes Status: Acute Assessment and plan: SCDs and SQ heparin - Subjective Interval history: Patient seen and examined. Reports to feeling weak and tired this morning. Pain is well controlled. Reports some mild cough, but no shortness of breath. Denies focal weakness, dizziness, chest pain, N/V/D, dysuria, or leg pain/swelling. - Constitutional Vitals: Temp Pulse Resp BP Pulse Ox 99.0 F 89 18 123/82 92 01/30/17 08:32 01/30/17 08:32 01/30/17 08:32 01/30/17 08:32 01/30/17 08:32 General appearance: Present: cooperative, mild distress, A&O X 3, pleasant, answers questions appropriately - Head Head exam: Present: atraumatic, normocephalic - Eye Eye exam: Present: sclera anicteric - ENT ENT exam: Present: mucous membranes moist - Respiratory Respiratory exam: Present: CTAB. Absent: rales, rhonchi, wheezes - Cardiovascular Cardiovascular exam: Present: RRR, +S1, +S2. Absent: diastolic murmur, systolic murmur - GI/Abdominal GI/Abdominal exam: Present: normal bowel sounds, soft. Absent: distended, rigid , tenderness, no peritoneal signs - Extremities Exam Extremities exam: Present: warm, radial pulses palpable and symmetrical. Absent : pedal edema, tenderness - Neurological Exam Neurological exam: Present: alert, CN II-XII intact, oriented X3, no focal deficits Internal Medicine: Result - Labs CBC & Chem 7: 01/30/17 05:54 01/30/17 05:54 Labs: Short CBC 01/30/17 Range/Units 05:54 WBC 19.8 H (4.3-11.1) K/mcL Hgb 11.7 L (12.9-16.9) g/dL Hct 33.5 L (37.5-50.1) % Plt Count 178 D (140-400) K/mcL BMP 01/30/17 05:54 Sodium 142 Potassium 3.3 L Chloride 109 Carbon Dioxide 27 BUN 15 Creatinine 1.43 H Glucose 105 H Calcium 8.2 L - Impressions Impressions Abdomen/Pelvis CT 01/29/17 08:24 IMPRESSION: 1. Interval placement of right ureteral stent with decompression of the right renal collecting system. Nonobstructive left-sided nephrolithiasis. 2. New moderate bilateral pleural effusions, intra-abdominal ascites and anasarca suggesting cardiac disease. 3. No additional acute findings within the abdomen or pelvis. Colonic diverticulosis with no acute features. D/ / 01/29/2017 13:33:31 Quentin Marin MD / diallo Interpreting Provider: Quentin Marin MD - VTE Documentation of Mechanical Device: Intermittent pneumatic compression device Consult Discharge Plan - Plan [facility]errals: [facility] [Primary Care Provider[facility] - <Gabriel Fernandez H - Last Filed: 01/30/17 16:14> Date of Encounter: 01/30/17 - Constitutional Vitals: Temp Pulse Resp BP Pulse Ox 98.2 F 87 18 123/82 92 01/30/17 11:00 01/30/17 11:55 01/30/17 08:32 01/30/17 08:32 01/30/17 08:32 Internal Medicine: Result - Labs CBC & Chem 7: 01/30/17 05:54 01/30/17 05:54 Labs: Short CBC 01/30/17 Range/Units 05:54 WBC 19.8 H (4.3-11.1) K/mcL Hgb 11.7 L (12.9-16.9) g/dL Hct 33.5 L (37.5-50.1) % Plt Count 178 D (140-400) K/mcL BMP 01/30/17 05:54 Sodium 142 Potassium 3.3 L Chloride 109 Carbon Dioxide 27 BUN 15 Creatinine 1.43 H Glucose 105 H Calcium 8.2 L - Impressions Impressions Abdomen/Pelvis CT 01/29/17 08:24 IMPRESSION: 1. Interval placement of right ureteral stent with decompression of the right renal collecting system. Nonobstructive left-sided nephrolithiasis. 2. New moderate bilateral pleural effusions, intra-abdominal ascites and anasarca suggesting cardiac disease. 3. No additional acute findings within the abdomen or pelvis. Colonic diverticulosis with no acute features. D/ / 01/29/2017 13:33:31 Quentin Marin MD / diallo Interpreting Provider: Quentin Marin MD - Attending Attestation De-escalate antibiotic therapy Stop Zosyn, start Rocephin 2 g IV daily Patient is concerned about tick-related diseases Check for Anaplasma, ehrlichiosis, Lyme I examined this patient and my medical decision-making was reviewed with the Resident Physician. I agree with the documented findings, disposition and treatment plan as described except to the extent set forth below.
[2017-01-30] MEDS: *HR* OxyCODONE/APAP 5/325 TABLET PO PRN (10:47)
--- NOTE | 2017-01-30 14:20 | Infectious Disease Consult ---
Date of Encounter: 01/30/17 Time of Encounter: 14:18 Assessment and Plan (1) Sepsis Status: Acute Assessment and plan: The patient had three SIRS criteria. Likely secondary to bacteremia. Improved. The patient has been afebrile and tachycardia has resolved. He continues to have leukocytosis. Blood cultures drawn 01/25/17 x 2 sets, 01/26/17 x 1 set, and 01/28/17 x 2 sets are positive for E. coli. Qualifiers: Sepsis type: Escherichia coli Qualified Code(s): A41.51 - Sepsis due to Escherichia coli [E. coli] (2) Bacteremia Status: Acute Assessment and plan: Causative organism E. coli, frias-sensitive. Source likely pyelonephritis. Persistent despite adequate antibiotic therapy. CT scan completed at the [facility] showed mild right hydroureteronephrosis with a 3mm stone in the UVJ and perinephric and periureteral stranding. Repeat CT scan of the abdomen 01/29/17 showed moderate bilateral pleural effusions, abdominal ascites, and anasarca concerning for cardiac disease. It also showed diverticulosis without diverticulitis. No other intra-abdominal findings were noted. Blood cultures drawn 01/25/17 were positive 2/2 sets for E. coli. Repeat blood cultures drawn 01/26 x 1 set and 01/28/17 x 2 sets are positive as well. The patient has been on Zosyn x 5 days. Repeat blood cultures x 2 sets now. Continue Zosyn 3.375 grams IV Q8H for now. If repeat blood cultures are negative, will consider de-escalating. Duration of treatment depends on the clinical picture. Monitor renal function and dose-adjust antibiotics. (3) Acute pyelonephritis Status: Acute Assessment and plan: Location: Right kidney. Causative organism likely E. coli given the blood culture results. Likely secondary to obstructing uterolithiasis. CT A/P done 01/29/17 negative for abscess. Continue antibiotics as above. (4) Ureterolithiasis Status: Acute Assessment and plan: CT of the abdomen and pelvis completed at the [facility] showed a 3mm obstructing stone in the right UVJ. Urology consulted. Status post right ureteroscopy, basket stone extraction, and right ureteral stent placement 01/26/[address] Mchugh. (5) Ascites Status: Acute Assessment and plan: Etiology unclear. Incidental finding on the most recent CT scan. Further evaluation and management per the primary team. Qualifiers: Ascites type: other type Qualified Code(s): R18.8 - Other ascites (6) Tobacco abuse Status: Chronic (7) CKD (chronic kidney disease) stage 3, GFR 30-59 ml/min Status: Suspected Assessment and plan: Unsure of the patient's baseline. Serum creatinine 1.43 today. Will continue to trend and dose-adjust antibiotics as needed. Avoid nephrotoxins as able. Infectious Disease HPI - Data of Consult Patient: new to practice Consult date: 01/30/17 Requesting Physician: Gabriel Fernandez Primary Care Provider: PCP [place] - Consult Narrative Reason for consult: E. coli bacteremia History of present illness: Mr. Toscano is a 61 year old male 's medical history of arthritis and hyperlipidemia. The patient was admitted to the hospital January 25 for leukocytosis and kidney stones. We are consulted January 30 for further evaluation and treatment recommendations regarding persistent bacteremia. The patient's a 61-year-old male with past medical history as stated above. The patient is somewhat of a poor historian, therefore, most of the information is obtained from the medical record. Apparently, the patient began to experience right lower quadrant abdominal pain, nausea, vomiting that started last Sunday. The symptoms persisted and he was seen at the urgent care over at the [place]. He also reported dysuria for about a month. At the [place], the patient was noted to have leukocytosis and a right-sided kidney stone that was obstructing and was subsequently transferred here to the emergency department. Upon arrival here, the patient was afebrile. He was tachycardic and had leukocytosis. He was started on IV Rocephin and admitted for further evaluation and treatment. Since admission, the patient has been evaluated by Urology and was taken to the OR on 01/26/17 and underwent a right ureteroscopy with basket stone extraction and right ureteral stent placement by Dr. Mchugh. The patient became febrile , tachycardic, tachypneic, and hypotensive post-op, but these have since resolved. He continues to have leukocytosis which is a little worse today. His renal function has remained stable. He has had 5 sets of blood cultures come back positive for E. coli. A repeat CT of the abdomen and pelvis done 01/29/17 showed moderate bilateral pleural effusions, intra-abdominal ascites, and anasarca. There was also diverticulosis without diverticulitis, but no other intra-abdominal pathologies. [facility], [facility] We've been asked to evaluate and make further recommendations. During my exam today, the patient states that overall he feels better. He denies any fevers or chills or rigors. He denies any headache or neck pain. He denies any congestion, earache, or sore throat. He denies any chest pain, shortness of breath, or cough. He denies any abdominal pain, nausea, vomiting, diarrhea, or constipation. He denies any urinary complaints. He denies any CVA pain. He states that overall he feels uncomfortable from lying in bed, but otherwise denies pain. He denies oral thrush or skin lesions. CC: Gabriel Fernandez Past Med Surg Social Fam HX - Past Medical History Attestation: Yes The following information was validated with the patient. Source: patient, old records reviewed, nursing notes reviewed Medical history: arthritis, hyperlipidemia, other (Kidney stones) Psychiatric history: anxiety, other - Past Surgical History Surgical History: no surgical history - Social History Smoking Status: Current some day smoker Packs per day: 1 Smokeless Tobacco Status: No Alcohol use: rarely Drug use: prescription drug abuse (Patient has a history of chronic valium use, up to four times a day. Has not had any since hospitalization.) Occupational status: unemployed Current living situation: Home - Independent Activity Level: Independent ambulation Recent Out of Country Travel Within the Last 8 Weeks: No Exposure or Possible Exposure to Illness During Travel: No - Family History Father Family Member Ethnicity: Non- Living Status: Hx Family Neurologic Disorders: Yes (Dementia, stroke) Hx Family Psychosocial Disorders: Yes Infectious Disease-CN:Meds Cyanocobalamin (Vitamin B-12) [Vitamin B12] 1,000 mcg PO DAILY 01/26/17 [History ] Etodolac 400 mg PO BID 01/26/17 [History] Gabapentin [Neurontin] 300 mg PO TID 01/26/17 [History] Multivitamin [Multi-Day Vitamins] 1 tab PO DAILY 01/26/17 [History] diazePAM [Valium] 2.5 mg PO QID PRN 01/26/17 [History] Allergies No Known Allergies Allergy (Verified 01/25/17 22:02) All systems: reviewed and no additional remarkable complaints except as stated Exam - Constitutional Vitals: Temp Pulse Resp BP Pulse Ox 98.2 F 87 18 123/82 92 01/30/17 11:00 01/30/17 11:55 01/30/17 08:32 01/30/17 08:32 01/30/17 08:32 General appearance: cooperative, no acute distress, thin - Head Head exam: Present: atraumatic, normal inspection, normocephalic - Eye Eye exam: Present: EOMI, normal appearance, PERRL Pupils: Present: normal accommodation Additional comments: No subconjunctival hemorrhage noted. - ENT ENT exam: Present: mucous membranes moist - Neck Neck exam: Present: normal inspection - Respiratory Respiratory exam: Present: CTAB. Absent: rales, respiratory distress, rhonchi, wheezes - Cardiovascular Cardiovascular exam: Present: RRR, +S1, +S2 - GI/Abdominal GI/Abdominal exam: Present: normal bowel sounds, soft. Absent: distended, tenderness - Extremities Exam Extremities exam: Present: normal inspection. Absent: joint swelling, pedal edema, tenderness - Back Exam Back exam: Present: normal inspection. Absent: CVA tenderness (L), CVA tenderness (R) - Neurological Exam Neurological exam: Present: alert, oriented X3, no focal deficits - Psychiatric Psychiatric exam: Present: normal affect, normal mood - Skin Skin exam: Present: dry, intact, normal color, warm Infectious Disease CN: Results - Labs CBC & Chem 7: 01/31/17 06:11 01/31/17 06:11 Cultures: Cultures 01/28/17 10:52 Blood Culture - Preliminary Peripheral Venipuncture Gram Negative Serjio 01/28/17 10:52 Blood Culture - Preliminary Peripheral Venipuncture Escherichia coli 01/26/17 15:44 Blood Culture - Final Peripheral Venipuncture Escherichia coli Serology: Serology 01/28/17 01/26/17 Range/Units 10:52 13:27 Number of Stones 3 Stone Size 1 TO 4 mm Stone Mass 25 mg Stone Description SEE NOTE Stone Composition SEE NOTE A. baumannii (PCR) Not Detected (Not Detect) Gricel albicans (PCR) Not Detected (Not Detect) C. glabrata (PCR) Not Detected (Not Detect) C. krusei (PCR) Not Detected (Not Detect) C. parapsilosis (PCR) Not Detected (Not Detect) C. tropicalis (PCR) Not Detected (Not Detect) Enterobacteriac sp PCR DETECTED A (Not Detect) E. cloacae complex PCR Not Detected (Not Detect) Enterococcus sp PCR Not Detected (Not Detect) E. coli (PCR) DETECTED A (Not Detect) H. influenzae (PCR) Not Detected (Not Detect) Klebsiella oxytoca PCR Not Detected (Not Detect) Klebsiella pneumoniae Not Detected (Not Detect) List. monocytogenes PCR Not Detected (Not Detect) N. meningitidis (PCR) Not Detected (Not Detect) Proteus species (PCR) Not Detected (Not Detect) Serratia marcescens PCR Not Detected (Not Detect) Staphylococcus sp PCR Not Detected (Not Detect) Staph aureus (PCR) Not Detected (Not Detect) mecA-Methicil Res Gene Not Detected (Not Detect) Streptococcus sp PCR Not Detected (Not Detect) Group A Strep DNA Not Detected (Not Detect) Group B Strep (PCR) Not Detected (Not Detect) Strep pneumoniae (PCR) Not Detected (Not Detect) P. aeruginosa (PCR) Not Detected (Not Detect) Marley/B-Vanco Res Genes Not Detected (Not Detect) KPC (blaKPC) Detect PCR Not Detected (Not Detect) - VTE Documentation of Mechanical Device: Intermittent pneumatic compression device Consult Discharge Plan - Plan [facility]errals: [facility] [Primary Care Provider] - - Attending Attestation I examined this patient and my medical decision-making was reviewed with the Resident Physician. I agree with the documented findings, disposition and treatment plan as described except to the extent set forth below. This is an addendum to original report dictated by Missy Dan CNP. Please refer to Kai note for full detail. Patient is 58-year-old gentleman with extensive past medical history mentioned below was admitted to the hospital on January 25 for leukocytosis and kidney stones. We are consulted on the for persistent bacteremia with Escherichia coli. On 01/26/17 patient was not underwent a right ureteroscopy with basket stone extraction and right ureteral stent placement by Dr. Mchugh. Patient became febrile tachycardia to And hypotensive postop and was transferred to the ICU. A repeat CT of the abdomen pelvis done on showed moderate bilateral pleural effusion intra- abdominal ascites and anasarca. There was diverticulosis without diverticulitis. Patient continued to have blood cultures obtained and have been positive every day until 01/28/17. We were asked to evaluate the patients make further recommendations. Patient has been on Zosyn on this time. Patient clinically is doing okay awake alert oriented answers questions follows command does not. That toxic. At this point I think he continued bacteremia was due to his really bad urinary infection and manipulation done by urology. Patients Escherichia coli was pansensitive so Ill switch the patient to Rocephin for ease of administration and well continue to monitor. Ill repeat cultures today. If patient continues to be bacteremic so we might have to repeat imaging of chest abdomen and pelvis with oral contrast and IV contrast that. I dont think the patient has endocarditis there is no endocarditis stigmata on physical exam. Well continue to follow closely thank you for allowing us to per to spit in the management of this patient.
--- NOTE | 2017-01-30 15:20 | Urology Progress Note ---
Date of Encounter: 01/30/17 Time of Encounter: 15:19 - Assessment and Plan (1) Leukocytosis Current Visit: Yes Status: Acute Qualifiers: Leukocytosis type: unspecified Qualified Code(s): D72.829 - Elevated white blood cell count, unspecified (2) Ureterolithiasis Current Visit: Yes Status: Acute Assessment and plan: sp removal. stent needs to stay in place for 2-3 weeks. ID on board for rising WBC and infection. call with questions. Progress Note Narrative: patient seen. feeling ok. no pain. Objective Initial Vital Signs Temp Pulse Resp BP Pulse Ox 98.4 F 106 18 122/77 96 01/25/17 22:03 01/25/17 22:03 01/25/17 22:03 01/25/17 22:03 01/25/17 22:03 - General physical appearance Present: well developed - Abdomen Present: soft - Labs 01/30/17 05:54 01/30/17 05:54 Diabetes panel 01/30/17 Range/Units 05:54 Sodium 142 (136-145) mEq/L Potassium 3.3 L (3.5-4.5) mEq/L Chloride 109 (98-109) mEq/L Carbon Dioxide 27 (19-29) mEq/L BUN 15 (8-26) mg/dL Creatinine 1.43 H (0.72-1.25) mg/dL Glucose 105 H (70-99) mg/dL Calcium 8.2 L (8.6-10.8) mg/dL Calcium panel 01/30/17 Range/Units 05:54 Calcium 8.2 L (8.6-10.8) mg/dL Pituitary panel 01/30/17 Range/Units 05:54 Sodium 142 (136-145) mEq/L Potassium 3.3 L (3.5-4.5) mEq/L Chloride 109 (98-109) mEq/L Carbon Dioxide 27 (19-29) mEq/L BUN 15 (8-26) mg/dL Creatinine 1.43 H (0.72-1.25) mg/dL Glucose 105 H (70-99) mg/dL Calcium 8.2 L (8.6-10.8) mg/dL Adrenal panel 01/30/17 Range/Units 05:54 Sodium 142 (136-145) mEq/L Potassium 3.3 L (3.5-4.5) mEq/L Chloride 109 (98-109) mEq/L Carbon Dioxide 27 (19-29) mEq/L BUN 15 (8-26) mg/dL Creatinine 1.43 H (0.72-1.25) mg/dL Glucose 105 H (70-99) mg/dL Calcium 8.2 L (8.6-10.8) mg/dL - VTE Documentation of Mechanical Device: Intermittent pneumatic compression device Consult Discharge Plan - Plan [facility]errals: [facility] [Primary Care Provider] -
[2017-01-30] MEDS: diazePAM 5 MG TABLET PO PRN (17:32)
[2017-01-31] MEDS: *HR* OxyCODONE/APAP 5/325 TABLET PO PRN (00:18)
[2017-01-31] MEDS: Ipratropium/Albuterol Neb 3 ML IH SCH ×4 (04:00→22:46)
[2017-01-31] MEDS: Famotidine 20 MG/2 ML VIAL IVP SCH (06:18)
[2017-01-31] MEDS: *HR* Heparin 5,000 UNIT/ML VIAL SQ SCH ×2 (06:18→17:41)
[2017-01-31 06:55] LABS: Hematocrit 32.4 % (37.5-50.1); Hemoglobin 10.7 g/dL (12.9-16.9); Mean Corpuscular Hemoglobin 29.6 pg (28.0-33.3); Mean Corpuscular Volume 89.5 fL (83.0-100.0); Mean Platelet Volume 11.2 fL (9.4-12.4); Platelet Count 226 K/mcL (140-400); Red Blood Count 3.62 M/mcL (4.19-5.50); Red Cell Distribution Width 13.4 % (11.5-14.5)
[2017-01-31 07:12] LABS: BUN/Creatinine Ratio 11 (6-26); Blood Urea Nitrogen 13 mg/dL (8-26); Calcium 8.4 mg/dL (8.6-10.8); Carbon Dioxide 26 mEq/L (19-29); Chloride 107 mEq/L (98-109); Glucose 82 mg/dL (70-99); Osmolality,Calculated 285 (280-300); Potassium 4.3 mEq/L (3.5-4.5); Sodium 138 mEq/L (136-145); eGFR For African Americans > 60 (> 60); eGFR For Non-African Americans > 60 (> 60)
[2017-01-31] MEDS: 0.9 % Sodium Chloride 1,000 ML IVC SCH ×2 (08:45→20:40)
[2017-01-31 09:07] LABS: Magnesium 1.8 mg/dL (1.6-2.6)
--- NOTE | 2017-01-31 09:12 | Internal Med Progress Note ---
<JuanJonathan Daphne - Last Filed: 01/31/17 11:26> Date of Encounter: 01/31/17 Time of Encounter: 09:09 - Assessment and plan (1) Sepsis due to Gram negative bacteria Current Visit: Yes Status: Acute Assessment and plan: Temp elevated to 103.3, HR 112, RR 24 and BP 88/58, s/p right ureterscopy with stone removal and stent placement Known source of infection with pyelonephritis and positive blood cultures (; 01/26/17; - E.coli: frias-sensitive). Patient is afebrile, BP has been stable overnight. Reports a history of tick bites this past spring and an illness at the end of November. Will evaluate for Lyme, Anaplasomosis, and Ehrlichiosis. ID consulted - appreciate recommendations New lower abdominal pain and dysuria this AM Plan: -On Rocephin day 2 (previously 5 days of Zosyn) -Will transfer out of ICU to tele bed when available -Repeat CT abdomen/pelvis with IV contrast as kidney function has improved -Repeat UA with culture -CT abdomen/pelvis: New moderate bilateral pleural effusions, intra-abdominal ascites and anasarca suggesting cardiac disease. No additional acute findings within the abdomen or pelvis. Colonic diverticulosis with no acute features. -Echo: LVEF 65%. Normal left ventricular size and systolic function. Normal diastolic function of the left ventricle. Normal right ventricular size and function. No significant valvular dysfunction. No pulmonary hypertension. -Add duonebs q6h for mild cough - lungs clear on exam, long-standing history of smoking (2) Acute pyelonephritis Current Visit: Yes Status: Acute Assessment and plan: 01/25; 01/26; 01/28 Blood cultures - frias-sensitive E.coli 01/30 blood cultures pending 5 days of Zosyn, now day 2 of Rocephin Urology consulted, appreciate their recommendations Plan: -Continue IVF -On Rocephin day 2 - E. coli - frias-sensitive -CT abd/pelivs showed no abscess or acute process (3) Ureterolithiasis Current Visit: Yes Status: Acute Assessment and plan: POD#5 s/p right ureteroscopy with stone removal and stent placement Pain improving, denies flank pain or back pain Plan: -Continue Morphine and Toradol prn (4) DVT prophylaxis Current Visit: Yes Status: Acute Assessment and plan: SCDs and SQ heparin - Subjective Interval history: Patient seen and examined. Reports to feeling weak and tired this morning. Reports some lower abdominal pain, associated with movements/bouncing and dysuria. Had a BM this morning of normal consistency and color, his first since admission. Reports some mild cough, but no shortness of breath. Denies focal weakness, dizziness, chest pain, N/V/D, or leg pain/swelling. - Constitutional Vitals: Temp Pulse Resp BP Pulse Ox 98.5 F 89 20 129/78 92 01/31/17 07:30 01/31/17 07:53 01/30/17 20:00 01/30/17 20:00 01/30/17 08:32 General appearance: Present: cooperative, mild distress, A&O X 3, pleasant, answers questions appropriately - Head Head exam: Present: atraumatic, normocephalic - Eye Eye exam: Present: sclera anicteric - ENT ENT exam: Present: mucous membranes moist - Respiratory Respiratory exam: Present: CTAB. Absent: rales, rhonchi, wheezes - Cardiovascular Cardiovascular exam: Present: RRR, +S1, +S2. Absent: diastolic murmur, systolic murmur - GI/Abdominal GI/Abdominal exam: Present: guarding, normal bowel sounds, rebound (lower). Absent: distended Additional comments: Tenderness across lower abdomen. Rebound tenderness in the same location. No tenderness or rebound in upper abdomen. - Extremities Exam Extremities exam: Present: normal capillary refill, pedal edema, warm, radial pulses palpable and symmetrical. Absent: joint swelling - Neurological Exam Neurological exam: Present: alert, CN II-XII intact, oriented X3, no focal deficits Internal Medicine: Result - Labs CBC & Chem 7: 01/31/17 06:11 01/31/17 06:11 Labs: Short CBC 01/31/17 Range/Units 06:11 WBC 20.0 H (4.3-11.1) K/mcL Hgb 10.7 L (12.9-16.9) g/dL Hct 32.4 L (37.5-50.1) % Plt Count 226 (140-400) K/mcL BMP 01/31/17 06:11 Sodium 138 Potassium 4.3 D Chloride 107 Carbon Dioxide 26 BUN 13 Creatinine 1.15 Glucose 82 Calcium 8.4 L - VTE Documentation of Mechanical Device: Intermittent pneumatic compression device Consult Discharge Plan - Plan [facility] Care Provider[facility] - <Gabriel Fernandez H - Last Filed: 01/31/17 14:31> Date of Encounter: 01/31/17 - Constitutional Vitals: Temp Pulse Resp BP Pulse Ox 98.7 F 89 20 129/78 92 01/31/17 11:42 01/31/17 07:53 01/30/17 20:00 01/30/17 20:00 01/30/17 08:32 Internal Medicine: Result - Labs CBC & Chem 7: 01/31/17 06:11 01/31/17 06:11 Labs: Short CBC 01/31/17 Range/Units 06:11 WBC 20.0 H (4.3-11.1) K/mcL Hgb 10.7 L (12.9-16.9) g/dL Hct 32.4 L (37.5-50.1) % Plt Count 226 (140-400) K/mcL BMP 01/31/17 06:11 Sodium 138 Potassium 4.3 D Chloride 107 Carbon Dioxide 26 BUN 13 Creatinine 1.15 Glucose 82 Calcium 8.4 L Urine 01/31/17 Range/Units 11:40 Urine Color Yellow (Yellow) Urine Clarity Cloudy A (Clear) Urine pH 6.5 (5.0-8.0) pH Units Ur Specific [place] 1.014 (1.010-1.025) Urine Protein 30 H (Neg-Trace) mg/dL Urine Glucose (UA) Normal (Normal) mg/dL - Attending Attestation Sepsis secondary to Escherichia coli bacteremia/acute pyelonephritis Continue Rocephin I examined this patient and my medical decision-making was reviewed with the Resident Physician. I agree with the documented findings, disposition and treatment plan as described except to the extent set forth below.
[2017-01-31 11:57] LABS: Bilirubin,Urine Negative (Negative); Blood,Urine Large (Negative); Clarity,Urine Cloudy (Clear); Color,Urine Yellow (Yellow); Glucose,Urine (UA) Normal (Normal); Ketones,Urine 40 mg/dL (Negative); Leukocyte Esterase,Urine Moderate (Negative); Nitrite,Urine Negative (Negative); PH,Urine 6.5 pH Units (5.0-8.0); Protein,Urine 30 mg/dL (Neg-Trace); Specific Gravity,Urine 1.014 (1.010-1.025); Urobilinogen,Urine Normal (Normal)
[2017-01-31 12:00] LABS: Bacteria,Urine None Seen per hpf (None-Few); Hyaline Casts,Urine None Seen per lpf (None-Few); Squamous Epithelial Cell,Urine Many per lpf (None-Few); WBC,Urine 50-100 per hpf (0-3)
[2017-01-31 12:23] LABS: RBC,Urine 15-30 per hpf (0-3)
[2017-01-31] MEDS: diazePAM 5 MG TABLET PO PRN ×2 (12:41→22:57)
--- NOTE | 2017-01-31 14:03 | Infectious Disease Progress No ---
Date of Encounter: 01/31/17 Time of Encounter: 14:01 - Assessment and Plan (1) Sepsis Current Visit: Yes Status: Acute The patient had three SIRS criteria. Likely secondary to bacteremia and pyelonephritis. Improved. The patient has been afebrile and tachycardia has resolved. He continues to have leukocytosis. Blood cultures drawn 01/25/17 x 2 sets, 01/26/17 x 1 set, and 01/28/17 x 2 sets are positive for E. coli. Repeat blood cultures drawn 01/30/17 are pending x 2 sets. Repeat urine culture ordered and pending. Qualifiers: Sepsis type: Escherichia coli Qualified Code(s): A41.51 - Sepsis due to Escherichia coli [E. coli] (2) Bacteremia Current Visit: Yes Status: Acute Causative organism E. coli, frias-sensitive. Source likely pyelonephritis. Persistent despite adequate antibiotic therapy. CT scan completed at the [facility] showed mild right hydroureteronephrosis with a 3mm stone in the UVJ and perinephric and periureteral stranding. Repeat CT scan of the abdomen 01/29/17 showed moderate bilateral pleural effusions, abdominal ascites, and anasarca concerning for cardiac disease. It also showed diverticulosis without diverticulitis. No other intra-abdominal findings were noted. Blood cultures drawn 01/25/17 were positive 2/2 sets for E. coli. Repeat blood cultures drawn 01/26 x 1 set and 01/28/17 x 2 sets are positive as well. Additional blood cultures drawn 01/30/17 are pending x 2 sets. Antibiotics switched to Rocephin per the primary team. Repeat CT of the abdomen and pelvis with contrast ordered per the primary team. Await repeat CT scan. Continue Rocephin 2 grams IV daily. Duration of treatment depends on the clinical picture. Monitor renal function and dose-adjust antibiotics. (3) Acute pyelonephritis Current Visit: Yes Status: Acute Location: Right kidney. Causative organism likely E. coli given the blood culture results. Likely secondary to obstructing uterolithiasis. CT A/P done 01/29/17 negative for abscess. Continue antibiotics as above. (4) Ureterolithiasis Current Visit: Yes Status: Acute CT of the abdomen and pelvis completed at the [facility] showed a 3mm obstructing stone in the right UVJ. Urology consulted. Status post right ureteroscopy, basket stone extraction, and right ureteral stent placement 01/26/[address] Mchugh. (5) Ascites Current Visit: Yes Status: Acute Etiology unclear. Incidental finding on the most recent CT scan. Further evaluation and management per the primary team. Qualifiers: Ascites type: other type Qualified Code(s): R18.8 - Other ascites (6) Tobacco abuse Current Visit: Yes Status: Chronic (7) CKD (chronic kidney disease) stage 3, GFR 30-59 ml/min Current Visit: Yes Status: Suspected Unsure of the patient's baseline. Serum creatinine 1.15 today. Will continue to trend and dose-adjust antibiotics as needed. Avoid nephrotoxins as able. - Subjective Interval history: Patient seen and examined. No acute events noted overnight. Patient resting quietly in bed. Patient reports that he's had some increased abdominal pain that started last night, but states this seems to be improved since he had 2 bowel movements this morning. Denies any fevers or chills or rigors. Denies chest pain, shortness of breath, or cough. Denies any nausea, vomiting, diarrhea , or constipation. He does report some pain at the end of his urine stream. He denies any hesitancy or foul odor to his urine. He states his abdominal pain is localized to the lower abdomen and is crampy in nature. He denies radiation of the pain. He denies any oral thrush or new skin lesions. Infect Dis PN-Objective Data - Labs CBC & Chem 7: 01/31/17 06:11 01/31/17 06:11 Labs: Laboratory Results - last 24 hr 01/31/17 01/31/17 01/31/17 06:11 06:11 11:40 WBC 20.0 H RBC 3.62 L Hgb 10.7 L Hct 32.4 L MCV 89.5 MCH 29.6 MCHC 33.0 RDW 13.4 Plt Count 226 MPV 11.2 Sodium 138 Potassium 4.3 D Chloride 107 Carbon Dioxide 26 BUN 13 Creatinine 1.15 Est GFR ( Amer) > 60 Est GFR (Non-Af Amer) > 60 BUN/Creatinine Ratio 11 Glucose 82 Calculated Osmolality 285 Calcium 8.4 L Magnesium 1.8 Urine Color Yellow Urine Clarity Cloudy A Urine pH 6.5 Ur Specific [place] 1.014 Urine Protein 30 H Urine Glucose (UA) Normal Urine Ketones 40 H Urine Blood Large H Urine Nitrite Negative Urine Bilirubin Negative Urine Urobilinogen Normal Ur Leukocyte Esterase Moderate H Urine Microscopic RBC 15-30 H Urine Microscopic WBC 50-100 H Ur Squamous Epith Cells Many H Urine Bacteria None Seen Hyaline Casts None Seen Ur Culture Indicated? YES A Lyme Total Antibody 01/31/17 16:26 WBC RBC Hgb Hct MCV MCH MCHC RDW Plt Count MPV Sodium Potassium Chloride Carbon Dioxide BUN Creatinine Est GFR ( Amer) Est GFR (Non-Af Amer) BUN/Creatinine Ratio Glucose Calculated Osmolality Calcium Magnesium Urine Color Urine Clarity Urine pH Ur Specific [place] Urine Protein Urine Glucose (UA) Urine Ketones Urine Blood Urine Nitrite Urine Bilirubin Urine Urobilinogen Ur Leukocyte Esterase Urine Microscopic RBC Urine Microscopic WBC Ur Squamous Epith Cells Urine Bacteria Hyaline Casts Ur Culture Indicated? Lyme Total Antibody negative Cultures: Cultures 01/28/17 10:52 Blood Culture - Final Peripheral Venipuncture Escherichia coli 01/28/17 10:52 Blood Culture - Final Peripheral Venipuncture Escherichia coli 01/26/17 15:44 Blood Culture - Final Peripheral Venipuncture Escherichia coli Serology 01/31/17 01/31/17 01/28/17 Range/Units 16:26 11:40 10:52 Urine Color Yellow (Yellow) Urine Clarity Cloudy A (Clear) Urine pH 6.5 (5.0-8.0) pH Units Ur Specific [place] 1.014 (1.010-1.025) Urine Protein 30 H (Neg-Trace) mg/dL Urine Glucose (UA) Normal (Normal) mg/dL Urine Ketones 40 H (Negative) mg/dL Urine Blood Large H (Negative) Urine Nitrite Negative (Negative) Urine Bilirubin Negative (Negative) Urine Urobilinogen Normal (Normal) mg/dL Ur Leukocyte Esterase Moderate H (Negative) Urine Microscopic RBC 15-30 H (0-3) per hpf Urine Microscopic WBC 50-100 H (0-3) per hpf Ur Squamous Epith Cells Many H (None-Few) per lpf Urine Bacteria None Seen (None-Few) per hpf Hyaline Casts None Seen (None-Few) per lpf Ur Culture Indicated? YES A (NO) Number of Stones Stone Size mm Stone Mass mg Stone Description Stone Composition A. baumannii (PCR) Not Detected (Not Detect) Lyme Total Antibody negative (Negative) Gricel albicans (PCR) Not Detected (Not Detect) C. glabrata (PCR) Not Detected (Not Detect) C. krusei (PCR) Not Detected (Not Detect) C. parapsilosis (PCR) Not Detected (Not Detect) C. tropicalis (PCR) Not Detected (Not Detect) Enterobacteriac sp PCR DETECTED A (Not Detect) E. cloacae complex PCR Not Detected (Not Detect) Enterococcus sp PCR Not Detected (Not Detect) E. coli (PCR) DETECTED A (Not Detect) H. influenzae (PCR) Not Detected (Not Detect) Klebsiella oxytoca PCR Not Detected (Not Detect) Klebsiella pneumoniae Not Detected (Not Detect) List. monocytogenes PCR Not Detected (Not Detect) N. meningitidis (PCR) Not Detected (Not Detect) Proteus species (PCR) Not Detected (Not Detect) Serratia marcescens PCR Not Detected (Not Detect) Staphylococcus sp PCR Not Detected (Not Detect) Staph aureus (PCR) Not Detected (Not Detect) mecA-Methicil Res Gene Not Detected (Not Detect) Streptococcus sp PCR Not Detected (Not Detect) Group A Strep DNA Not Detected (Not Detect) Group B Strep (PCR) Not Detected (Not Detect) Strep pneumoniae (PCR) Not Detected (Not Detect) P. aeruginosa (PCR) Not Detected (Not Detect) Marley/B-Vanco Res Genes Not Detected (Not Detect) KPC (blaKPC) Detect PCR Not Detected (Not Detect) 01/26/17 Range/Units 13:27 Urine Color (Yellow) Urine Clarity (Clear) Urine pH (5.0-8.0) pH Units Ur Specific [place] (1.010-1.025) Urine Protein (Neg-Trace) mg/dL Urine Glucose (UA) (Normal) mg/dL Urine Ketones (Negative) mg/dL Urine Blood (Negative) Urine Nitrite (Negative) Urine Bilirubin (Negative) Urine Urobilinogen (Normal) mg/dL Ur Leukocyte Esterase (Negative) Urine Microscopic RBC (0-3) per hpf Urine Microscopic WBC (0-3) per hpf Ur Squamous Epith Cells (None-Few) per lpf Urine Bacteria (None-Few) per hpf Hyaline Casts (None-Few) per lpf Ur Culture Indicated? (NO) Number of Stones 3 Stone Size 1 TO 4 mm Stone Mass 25 mg Stone Description SEE NOTE Stone Composition SEE NOTE A. baumannii (PCR) (Not Detect) Lyme Total Antibody (Negative) Gricel albicans (PCR) (Not Detect) C. glabrata (PCR) (Not Detect) C. krusei (PCR) (Not Detect) C. parapsilosis (PCR) (Not Detect) C. tropicalis (PCR) (Not Detect) Enterobacteriac sp PCR (Not Detect) E. cloacae complex PCR (Not Detect) Enterococcus sp PCR (Not Detect) E. coli (PCR) (Not Detect) H. influenzae (PCR) (Not Detect) Klebsiella oxytoca PCR (Not Detect) Klebsiella pneumoniae (Not Detect) List. monocytogenes PCR (Not Detect) N. meningitidis (PCR) (Not Detect) Proteus species (PCR) (Not Detect) Serratia marcescens PCR (Not Detect) Staphylococcus sp PCR (Not Detect) Staph aureus (PCR) (Not Detect) mecA-Methicil Res Gene (Not Detect) Streptococcus sp PCR (Not Detect) Group A Strep DNA (Not Detect) Group B Strep (PCR) (Not Detect) Strep pneumoniae (PCR) (Not Detect) P. aeruginosa (PCR) (Not Detect) Marley/B-Vanco Res Genes (Not Detect) KPC (blaKPC) Detect PCR (Not Detect) Exam - Constitutional Vitals: Temp Pulse Resp BP Pulse Ox 98.7 F 89 20 129/78 92 01/31/17 11:42 01/31/17 07:53 01/30/17 20:00 01/30/17 20:00 01/30/17 08:32 General appearance: cooperative, no acute distress, thin - Head Head exam: Present: atraumatic, normal inspection, normocephalic - Eye Eye exam: Present: EOMI, normal appearance, PERRL Pupils: Present: normal accommodation Additional comments: No subconjunctival hemorrhage noted. - ENT ENT exam: Present: mucous membranes moist - Neck Neck exam: Present: normal inspection - Respiratory Respiratory exam: Present: CTAB. Absent: rales, respiratory distress, rhonchi, wheezes - Cardiovascular Cardiovascular exam: Present: RRR, +S1, +S2 - GI/Abdominal GI/Abdominal exam: Present: normal bowel sounds, soft, tenderness (RLQ, LLQ). Absent: distended - Extremities Exam Extremities exam: Present: normal inspection. Absent: joint swelling, pedal edema, tenderness - Neurological Exam Neurological exam: Present: alert, oriented X3, no focal deficits - Psychiatric Psychiatric exam: Present: normal affect, normal mood - Skin Skin exam: Present: dry, intact, normal color, warm - VTE Documentation of Mechanical Device: Intermittent pneumatic compression device Consult Discharge Plan - Plan [facility]: [facility]Primary Care Provider[facility] - - Attending Attestation I examined this patient and my medical decision-making was reviewed with the Resident Physician. I agree with the documented findings, disposition and treatment plan as described except to the extent set forth below.
[2017-01-31] MEDS ORDERED: *HR* Heparin 5,000 UNIT/ML VIAL ONE (17:38)
[2017-02-01] MEDS: Ipratropium/Albuterol Neb 3 ML IH SCH ×4 (04:04→22:33)
[2017-02-01 05:47] LABS: Hematocrit 32.3 % (37.5-50.1); Hemoglobin 10.8 g/dL (12.9-16.9); Mean Corpuscular HGB Conc 33.4 g/dL (31.6-35.5); Mean Corpuscular Volume 89.7 fL (83.0-100.0); Mean Platelet Volume 10.9 fL (9.4-12.4); Platelet Count 305 K/mcL (140-400); Red Cell Distribution Width 13.5 % (11.5-14.5)
[2017-02-01 05:53] LABS: BUN/Creatinine Ratio 13 (6-26); Blood Urea Nitrogen 14 mg/dL (8-26); Calcium 8.4 mg/dL (8.6-10.8); Carbon Dioxide 23 mEq/L (19-29); Chloride 105 mEq/L (98-109); Glucose 85 mg/dL (70-99); Osmolality,Calculated 280 (280-300); Potassium 4.2 mEq/L (3.5-4.5); Sodium 135 mEq/L (136-145); eGFR For African Americans > 60 (> 60); eGFR For Non-African Americans > 60 (> 60)
[2017-02-01] MEDS: Famotidine 20 MG TABLET PO SCH (06:29)
[2017-02-01] MEDS: *HR* Heparin 5,000 UNIT/ML VIAL SQ SCH ×2 (06:29→18:06)
--- NOTE | 2017-02-01 10:33 | Infectious Disease Progress No ---
Date of Encounter: 02/01/17 Time of Encounter: 10:31 - Assessment and Plan (1) Sepsis Current Visit: Yes Status: Acute The patient had three SIRS criteria. Likely secondary to bacteremia and pyelonephritis. Improved. The patient has been afebrile and tachycardia has resolved. He continues to have leukocytosis, but is better today. Blood cultures drawn 01/25/17 x 2 sets, 01/26/17 x 1 set, and 01/28/17 x 2 sets are positive for E. coli. Repeat blood cultures drawn 01/30/17 are NGTD x 2 sets. Repeat urine culture ordered and pending. Qualifiers: Sepsis type: Escherichia coli Qualified Code(s): A41.51 - Sepsis due to Escherichia coli [E. coli] (2) Bacteremia Current Visit: Yes Status: Acute Causative organism E. coli, frias-sensitive. Source likely pyelonephritis. CT scan completed at the [facility] showed mild right hydroureteronephrosis with a 3mm stone in the UVJ and perinephric and periureteral stranding. Repeat CT scan of the abdomen 01/29/17 showed moderate bilateral pleural effusions, abdominal ascites, and anasarca concerning for cardiac disease. It also showed diverticulosis without diverticulitis. No other intra-abdominal findings were noted. Repeat CT scan with contrast 01/31/17 did not reveal any new source of infection. Blood cultures drawn 01/25/17 were positive 2/2 sets for E. coli. Repeat blood cultures drawn 01/26 x 1 set and 01/28/17 x 2 sets are positive as well. Additional blood cultures drawn 01/30/17 are NGTD x 2 sets. Antibiotics switched to Rocephin per the primary team. Continue Rocephin 2 grams IV daily. Duration of treatment depends on the clinical picture, but likely 14 days from the first set of negative blood cultures. (3) Acute pyelonephritis Current Visit: Yes Status: Acute Location: Right kidney. Causative organism likely E. coli given the blood culture results. Likely secondary to obstructing uterolithiasis. CT A/P done 01/29/17 negative for abscess. Continue antibiotics as above. (4) Ureterolithiasis Current Visit: Yes Status: Acute CT of the abdomen and pelvis completed at the [facility] showed a 3mm obstructing stone in the right UVJ. Urology consulted. Status post right ureteroscopy, basket stone extraction, and right ureteral stent placement 01/26/[address] Mchugh. (5) Ascites Current Visit: Yes Status: Acute Etiology unclear. Incidental finding on the most recent CT scan. Further evaluation and management per the primary team. Qualifiers: Ascites type: other type Qualified Code(s): R18.8 - Other ascites (6) Tobacco abuse Current Visit: Yes Status: Chronic (7) CKD (chronic kidney disease) stage 3, GFR 30-59 ml/min Current Visit: Yes Status: Suspected Unsure of the patient's baseline. Serum creatinine 1.12 today. Will continue to trend and dose-adjust antibiotics as needed. Avoid nephrotoxins as able. - Subjective Interval history: Patient seen and examined. No acute events noted overnight. Patient resting quietly in bed. Patient reports that overall he feels better today. Denies abdominal pain and states he had a loose BM this morning. Denies any fevers or chills or rigors. Denies chest pain or shortness of breath. Reports a dry, non- productive cough. Denies any nausea, vomiting, diarrhea, or constipation. He does report some pain at the end of his urine stream. He denies any hesitancy or foul odor to his urine. He denies any oral thrush or new skin lesions. He states his appetite is much better today. Infect Dis PN-Objective Data - Labs CBC & Chem 7: 02/01/17 05:08 02/01/17 05:08 Labs: Laboratory Results - last 24 hr 01/31/17 01/31/17 02/01/17 11:40 16:26 05:08 WBC 17.8 H RBC 3.60 L Hgb 10.8 L Hct 32.3 L MCV 89.7 MCH 30.0 MCHC 33.4 RDW 13.5 Plt Count 305 MPV 10.9 Sodium Potassium Chloride Carbon Dioxide BUN Creatinine Est GFR ( Amer) Est GFR (Non-Af Amer) BUN/Creatinine Ratio Glucose Calculated Osmolality Calcium Urine Color Yellow Urine Clarity Cloudy A Urine pH 6.5 Ur Specific [place] 1.014 Urine Protein 30 H Urine Glucose (UA) Normal Urine Ketones 40 H Urine Blood Large H Urine Nitrite Negative Urine Bilirubin Negative Urine Urobilinogen Normal Ur Leukocyte Esterase Moderate H Urine Microscopic RBC 15-30 H Urine Microscopic WBC 50-100 H Ur Squamous Epith Cells Many H Urine Bacteria None Seen Hyaline Casts None Seen Ur Culture Indicated? YES A Lyme Total Antibody negative 02/01/17 05:08 WBC RBC Hgb Hct MCV MCH MCHC RDW Plt Count MPV Sodium 135 L Potassium 4.2 Chloride 105 Carbon Dioxide 23 BUN 14 Creatinine 1.12 Est GFR ( Amer) > 60 Est GFR (Non-Af Amer) > 60 BUN/Creatinine Ratio 13 Glucose 85 Calculated Osmolality 280 Calcium 8.4 L Urine Color Urine Clarity Urine pH Ur Specific [place] Urine Protein Urine Glucose (UA) Urine Ketones Urine Blood Urine Nitrite Urine Bilirubin Urine Urobilinogen Ur Leukocyte Esterase Urine Microscopic RBC Urine Microscopic WBC Ur Squamous Epith Cells Urine Bacteria Hyaline Casts Ur Culture Indicated? Lyme Total Antibody Cultures: Cultures 01/30/17 13:45 Blood Culture - Preliminary Peripheral Venipuncture No growth. 01/30/17 13:40 Blood Culture - Preliminary Peripheral Venipuncture No growth. 01/28/17 10:52 Blood Culture - Final Peripheral Venipuncture Escherichia coli 01/28/17 10:52 Blood Culture - Final Peripheral Venipuncture Escherichia coli 01/26/17 15:44 Blood Culture - Final Peripheral Venipuncture Escherichia coli Serology 01/31/17 01/31/17 01/28/17 Range/Units 16:26 11:40 10:52 Urine Color Yellow (Yellow) Urine Clarity Cloudy A (Clear) Urine pH 6.5 (5.0-8.0) pH Units Ur Specific [place] 1.014 (1.010-1.025) Urine Protein 30 H (Neg-Trace) mg/dL Urine Glucose (UA) Normal (Normal) mg/dL Urine Ketones 40 H (Negative) mg/dL Urine Blood Large H (Negative) Urine Nitrite Negative (Negative) Urine Bilirubin Negative (Negative) Urine Urobilinogen Normal (Normal) mg/dL Ur Leukocyte Esterase Moderate H (Negative) Urine Microscopic RBC 15-30 H (0-3) per hpf Urine Microscopic WBC 50-100 H (0-3) per hpf Ur Squamous Epith Cells Many H (None-Few) per lpf Urine Bacteria None Seen (None-Few) per hpf Hyaline Casts None Seen (None-Few) per lpf Ur Culture Indicated? YES A (NO) Number of Stones Stone Size mm Stone Mass mg Stone Description Stone Composition A. baumannii (PCR) Not Detected (Not Detect) Lyme Total Antibody negative (Negative) Gricel albicans (PCR) Not Detected (Not Detect) C. glabrata (PCR) Not Detected (Not Detect) C. krusei (PCR) Not Detected (Not Detect) C. parapsilosis (PCR) Not Detected (Not Detect) C. tropicalis (PCR) Not Detected (Not Detect) Enterobacteriac sp PCR DETECTED A (Not Detect) E. cloacae complex PCR Not Detected (Not Detect) Enterococcus sp PCR Not Detected (Not Detect) E. coli (PCR) DETECTED A (Not Detect) H. influenzae (PCR) Not Detected (Not Detect) Klebsiella oxytoca PCR Not Detected (Not Detect) Klebsiella pneumoniae Not Detected (Not Detect) List. monocytogenes PCR Not Detected (Not Detect) N. meningitidis (PCR) Not Detected (Not Detect) Proteus species (PCR) Not Detected (Not Detect) Serratia marcescens PCR Not Detected (Not Detect) Staphylococcus sp PCR Not Detected (Not Detect) Staph aureus (PCR) Not Detected (Not Detect) mecA-Methicil Res Gene Not Detected (Not Detect) Streptococcus sp PCR Not Detected (Not Detect) Group A Strep DNA Not Detected (Not Detect) Group B Strep (PCR) Not Detected (Not Detect) Strep pneumoniae (PCR) Not Detected (Not Detect) P. aeruginosa (PCR) Not Detected (Not Detect) Marley/B-Vanco Res Genes Not Detected (Not Detect) KPC (blaKPC) Detect PCR Not Detected (Not Detect) 01/26/17 Range/Units 13:27 Urine Color (Yellow) Urine Clarity (Clear) Urine pH (5.0-8.0) pH Units Ur Specific [place] (1.010-1.025) Urine Protein (Neg-Trace) mg/dL Urine Glucose (UA) (Normal) mg/dL Urine Ketones (Negative) mg/dL Urine Blood (Negative) Urine Nitrite (Negative) Urine Bilirubin (Negative) Urine Urobilinogen (Normal) mg/dL Ur Leukocyte Esterase (Negative) Urine Microscopic RBC (0-3) per hpf Urine Microscopic WBC (0-3) per hpf Ur Squamous Epith Cells (None-Few) per lpf Urine Bacteria (None-Few) per hpf Hyaline Casts (None-Few) per lpf Ur Culture Indicated? (NO) Number of Stones 3 Stone Size 1 TO 4 mm Stone Mass 25 mg Stone Description SEE NOTE Stone Composition SEE NOTE A. baumannii (PCR) (Not Detect) Lyme Total Antibody (Negative) Gricel albicans (PCR) (Not Detect) C. glabrata (PCR) (Not Detect) C. krusei (PCR) (Not Detect) C. parapsilosis (PCR) (Not Detect) C. tropicalis (PCR) (Not Detect) Enterobacteriac sp PCR (Not Detect) E. cloacae complex PCR (Not Detect) Enterococcus sp PCR (Not Detect) E. coli (PCR) (Not Detect) H. influenzae (PCR) (Not Detect) Klebsiella oxytoca PCR (Not Detect) Klebsiella pneumoniae (Not Detect) List. monocytogenes PCR (Not Detect) N. meningitidis (PCR) (Not Detect) Proteus species (PCR) (Not Detect) Serratia marcescens PCR (Not Detect) Staphylococcus sp PCR (Not Detect) Staph aureus (PCR) (Not Detect) mecA-Methicil Res Gene (Not Detect) Streptococcus sp PCR (Not Detect) Group A Strep DNA (Not Detect) Group B Strep (PCR) (Not Detect) Strep pneumoniae (PCR) (Not Detect) P. aeruginosa (PCR) (Not Detect) Marley/B-Vanco Res Genes (Not Detect) KPC (blaKPC) Detect PCR (Not Detect) - Impressions Impressions Abdomen/Pelvis CT 01/31/17 14:15 IMPRESSION: 1. Hypoenhancement of the right kidney with a double-J ureteral stent in place. Findings are nonspecific but are suggestive of impaired renal function. 2. No intra-abdominal abscess. 3. Bilateral effusions with nonspecific right base opacity. Findings are similar to the CT dated 01/29/2017. 4. Mild diverticulosis. D/ / 01/31/2017 15:15:00 Marcia Webster MD / [facility] Interpreting Provider: Marcia Webster MD Exam - Constitutional Vitals: Temp Pulse Resp BP Pulse Ox 98.3 F 88 18 126/57 93 02/01/17 06:43 02/01/17 06:43 02/01/17 06:43 02/01/17 06:43 02/01/17 06:43 General appearance: average body habitus, cooperative, no acute distress - Head Head exam: Present: atraumatic, normal inspection, normocephalic - Eye Eye exam: Present: EOMI, normal appearance, PERRL Pupils: Present: normal accommodation - ENT ENT exam: Present: mucous membranes moist - Neck Neck exam: Present: normal inspection - Respiratory Respiratory exam: Present: CTAB. Absent: rales, respiratory distress, rhonchi, wheezes - Cardiovascular Cardiovascular exam: Present: RRR, +S1, +S2 - GI/Abdominal GI/Abdominal exam: Present: normal bowel sounds, soft. Absent: distended, tenderness - Extremities Exam Extremities exam: Present: normal inspection. Absent: joint swelling, pedal edema, tenderness - Back Exam Back exam: Present: normal inspection. Absent: CVA tenderness (L), CVA tenderness (R) - Neurological Exam Neurological exam: Present: alert, oriented X3, no focal deficits - Psychiatric Psychiatric exam: Present: normal affect, normal mood - Skin Skin exam: Present: dry, intact, normal color, warm - VTE Documentation of Mechanical Device: Intermittent pneumatic compression device Consult Discharge Plan - Plan [facility]errals: [facility] [Primary Care Provider] - - Attending Attestation I examined this patient and my medical decision-making was reviewed with the Resident Physician. I agree with the documented findings, disposition and treatment plan as described except to the extent set forth below.
--- NOTE | 2017-02-01 10:33 | Internal Med Progress Note ---
<Jonathan Martinez - Last Filed: 02/01/17 10:41> Date of Encounter: 02/01/17 Time of Encounter: 10:31 - Assessment and plan (1) Sepsis due to Gram negative bacteria Current Visit: Yes Status: Acute Assessment and plan: POD#5 s/p right ureterscopy with stone removal and stent placement - after surgery temp elevated to 103.3, HR 112, RR 24 and BP 88/58 Known source of infection with pyelonephritis and positive blood cultures (; 01/26/17; 01/28/17 - E.coli: frias-sensitive). 01/30/17 Blood culture - preliminary no growth Patient is afebrile, BP has been stable overnight. Reports a history of tick bites this past spring and an illness at the end of November. Will evaluate for Lyme, Anaplasomosis, and Ehrlichiosis - Lyme antibody negative ID consulted - appreciate recommendations Plan: - On Rocephin day 3 (previously 5 days of Zosyn) - CT abdomen/pelvis: New moderate bilateral pleural effusions, intra-abdominal ascites and anasarca suggesting cardiac disease. No additional acute findings within the abdomen or pelvis. Colonic diverticulosis with no acute features. - Echo: LVEF 65%. Normal left ventricular size and systolic function. Normal diastolic function of the left ventricle. Normal right ventricular size and function. No significant valvular dysfunction. No pulmonary hypertension. - Repeat CT abdomen/pelvis with IV contrast - no acute abnormality, no abscess - Repeat UA with culture - culture pending - Continue duonebs q6h for mild cough - lungs clear on exam, long-standing history of smoking (2) Acute pyelonephritis Current Visit: Yes Status: Acute Assessment and plan: 01/25; 01/26; 01/28 Blood cultures - frias-sensitive E.coli 01/30 blood cultures - preliminary no growth 5 days of Zosyn, now day 3 of Rocephin Urology consulted, appreciate their recommendations Plan: - Continue IVF - On Rocephin day 3 - E. coli - frias-sensitive - CT abd/pelivs showed no abscess or acute process (3) Ureterolithiasis Current Visit: Yes Status: Acute Assessment and plan: POD#5 s/p right ureteroscopy with stone removal and stent placement Pain improving, denies flank pain or back pain Plan: -Continue Morphine and Toradol prn (4) DVT prophylaxis Current Visit: Yes Status: Acute Assessment and plan: SCDs and SQ heparin - Subjective Interval history: Patient seen and examined. He is feeling much better today. Worked with physical therapy this morning. His abdominal pain is improved. Still reports mild dysuria. Reports some mild cough, but no shortness of breath. Denies focal weakness, dizziness, chest pain, N/V/D, or leg pain/swelling. - Constitutional Vitals: Temp Pulse Resp BP Pulse Ox 98.3 F 88 18 126/57 93 02/01/17 06:43 02/01/17 06:43 02/01/17 06:43 02/01/17 06:43 02/01/17 06:43 General appearance: Present: cooperative, mild distress, A&O X 3, pleasant, answers questions appropriately - Head Head exam: Present: atraumatic, normocephalic - Eye Eye exam: Present: sclera anicteric - ENT ENT exam: Present: mucous membranes moist - Respiratory Respiratory exam: Present: CTAB. Absent: rales, rhonchi, wheezes - Cardiovascular Cardiovascular exam: Present: RRR, +S1, +S2. Absent: diastolic murmur, systolic murmur - GI/Abdominal GI/Abdominal exam: Present: normal bowel sounds, soft. Absent: distended, rigid , tenderness - Extremities Exam Extremities exam: Present: pedal edema, warm, radial pulses palpable and symmetrical. Absent: joint swelling, tenderness - Neurological Exam Neurological exam: Present: alert, CN II-XII intact, oriented X3, no focal deficits Internal Medicine: Result - Labs CBC & Chem 7: 02/01/17 05:08 02/01/17 05:08 Labs: Short CBC 02/01/17 Range/Units 05:08 WBC 17.8 H (4.3-11.1) K/mcL Hgb 10.8 L (12.9-16.9) g/dL Hct 32.3 L (37.5-50.1) % Plt Count 305 (140-400) K/mcL BMP 02/01/17 05:08 Sodium 135 L Potassium 4.2 Chloride 105 Carbon Dioxide 23 BUN 14 Creatinine 1.12 Glucose 85 Calcium 8.4 L Urine 01/31/17 Range/Units 11:40 Urine Color Yellow (Yellow) Urine Clarity Cloudy A (Clear) Urine pH 6.5 (5.0-8.0) pH Units Ur Specific [place] 1.014 (1.010-1.025) Urine Protein 30 H (Neg-Trace) mg/dL Urine Glucose (UA) Normal (Normal) mg/dL - Impressions Impressions Abdomen/Pelvis CT 01/31/17 14:15 IMPRESSION: 1. Hypoenhancement of the right kidney with a double-J ureteral stent in place. Findings are nonspecific but are suggestive of impaired renal function. 2. No intra-abdominal abscess. 3. Bilateral effusions with nonspecific right base opacity. Findings are similar to the CT dated 01/29/2017. 4. Mild diverticulosis. D/ / 01/31/2017 15:15:00 Marcia Webster MD / [facility] Interpreting Provider: Marcia Webster MD - VTE Documentation of Mechanical Device: Intermittent pneumatic compression device Consult Discharge Plan - Plan Referrals: [facility] [Primary Care Provider] - <Gabriel Fernandez H - Last Filed: 02/01/17 10:55> Date of Encounter: 02/01/17 - Constitutional Vitals: Temp Pulse Resp BP Pulse Ox 98.3 F 96 18 111/70 92 02/01/17 10:26 02/01/17 10:26 02/01/17 10:26 02/01/17 10:26 02/01/17 10:26 Internal Medicine: Result - Labs CBC & Chem 7: 02/01/17 05:08 02/01/17 05:08 Labs: Short CBC 02/01/17 Range/Units 05:08 WBC 17.8 H (4.3-11.1) K/mcL Hgb 10.8 L (12.9-16.9) g/dL Hct 32.3 L (37.5-50.1) % Plt Count 305 (140-400) K/mcL BMP 02/01/17 05:08 Sodium 135 L Potassium 4.2 Chloride 105 Carbon Dioxide 23 BUN 14 Creatinine 1.12 Glucose 85 Calcium 8.4 L Urine 01/31/17 Range/Units 11:40 Urine Color Yellow (Yellow) Urine Clarity Cloudy A (Clear) Urine pH 6.5 (5.0-8.0) pH Units Ur Specific [place] 1.014 (1.010-1.025) Urine Protein 30 H (Neg-Trace) mg/dL Urine Glucose (UA) Normal (Normal) mg/dL - Impressions Impressions Abdomen/Pelvis CT 01/31/17 14:15 IMPRESSION: 1. Hypoenhancement of the right kidney with a double-J ureteral stent in place. Findings are nonspecific but are suggestive of impaired renal function. 2. No intra-abdominal abscess. 3. Bilateral effusions with nonspecific right base opacity. Findings are similar to the CT dated 01/29/2017. 4. Mild diverticulosis. D/ / 01/31/2017 15:15:00 Marcia Webster MD / [facility] Interpreting Provider: Marcia Webster MD - Attending Attestation Sepsis secondary to Escherichia coli bacteremia/acute pyelonephritis Continue Rocephin may switch to ceftin for 2 weeks if blood cultures are negative tomorrow I examined this patient and my medical decision-making was reviewed with the Resident Physician. I agree with the documented findings, disposition and treatment plan as described except to the extent set forth below.
[2017-02-01] MEDS: diazePAM 5 MG TABLET PO PRN ×2 (11:02→20:23)
[2017-02-01] MEDS: 0.9 % Sodium Chloride 1,000 ML IVC SCH (20:24)
[2017-02-02] MEDS: Ipratropium/Albuterol Neb 3 ML IH SCH ×3 (03:30→16:07)
[2017-02-02] MEDS: diazePAM 5 MG TABLET PO PRN (04:27)
[2017-02-02] MEDS: *HR* Heparin 5,000 UNIT/ML VIAL SQ SCH (04:28)
[2017-02-02 07:12] LABS: Hematocrit 32.1 % (37.5-50.1); Hemoglobin 10.5 g/dL (12.9-16.9); Mean Corpuscular HGB Conc 32.7 g/dL (31.6-35.5); Mean Corpuscular Hemoglobin 29.9 pg (28.0-33.3); Mean Corpuscular Volume 91.5 fL (83.0-100.0); Mean Platelet Volume 10.6 fL (9.4-12.4); Platelet Count 366 K/mcL (140-400); Red Blood Count 3.51 M/mcL (4.19-5.50)
[2017-02-02 07:20] LABS: BUN/Creatinine Ratio 13 (6-26); Blood Urea Nitrogen 13 mg/dL (8-26); Calcium 8.5 mg/dL (8.6-10.8); Carbon Dioxide 25 mEq/L (19-29); Chloride 107 mEq/L (98-109); Glucose 97 mg/dL (70-99); Osmolality,Calculated 284 (280-300); Potassium 4.4 mEq/L (3.5-4.5); Sodium 137 mEq/L (136-145); eGFR For African Americans > 60 (> 60); eGFR For Non-African Americans > 60 (> 60)
[2017-02-02] MEDS: Famotidine 20 MG TABLET PO SCH (09:08)
--- NOTE | 2017-02-02 09:57 | Discharge Summary ---
<Jonathan Martinez Last Filed: 02/02/17 14:21> Date of Encounter: 02/02/17 Time of Encounter: 09:53 - Discharge Diagnosis (1) Sepsis due to Gram negative bacteria Priority: Primary Status: Acute (2) Acute pyelonephritis Priority: Secondary Status: Acute (3) Ureterolithiasis Priority: Secondary Status: Acute (4) DVT prophylaxis Priority: Secondary Status: Acute - Discharge Medications Prescriptions: Levofloxacin [Levaquin] 750 mg PO DAILY #11 tablet Home Medications: Cyanocobalamin (Vitamin B-12) [Vitamin B12] 1,000 mcg PO DAILY 01/26/17 [History ] Etodolac 400 mg PO BID 01/26/17 [History] Gabapentin [Neurontin] 300 mg PO TID 01/26/17 [History] Multivitamin [Multi-Day Vitamins] 1 tab PO DAILY 01/26/17 [History] diazePAM [Valium] 2.5 mg PO QID PRN 01/26/17 [History] Levofloxacin [Levaquin] 750 mg PO DAILY #11 tablet 02/02/17 [Rx] Allergies/Adverse Reactions: 3 Allergy/AdvReac Type Severity Reaction Status Date / Time No Known Allergies Allergy Verified 01/25/17 22:02 Procedures/tests Complete & Pending: Procedures Performed prior 72 hours Category Date Time Status CT abd pelvis w iv no oral [CT] Stat Cat Scan 01/31/17 14:15 Completed EV echocardiogram Routine Y 01/30/17 16:00 Completed Date of admission: 01/26/17 05:36 [facility] care physician: [facility] Consults: 01/29/17 15:59 Consult to Infectious Diseases [CONS] Routine Consulting Provider: Infectious Disease Jazmin Reason for Consult: Persistent bacteremia Time Notified: 15:45 Call Completed: Yes 02/01/17 08:18 Consult to Physical Therapy [CONS] Routine Comment: Evaluate, develop and implement POC Reason for Consult: Pt experiencing weakness. 02/01/17 08:20 Consult to Occupational Therapy [CONS] Routine Comment: Evaluate, develop and implement POC Reason for Consult: Pt weak Discharging clinician: Jonathan Martinez Anticipated date of discharge: 02/02/17 - Patient Status Disposition: Home, Self-Care Condition: Fair Functional capacity at discharge: independent ambulation Overall status at discharge: patient is progressing back to baseline - Discharge Instructions Follow Up With: [facility] [Primary Care Provider] - Additional Instructions: Continue to take antibiotics as prescribed Increase activity and diet as tolerated Follow-up with your PCP Follow-up with Urology in 2-3 weeks for stent removal Return to the hospital if your symptoms return or worsen - Diet and Activity Activity: increase activity as tolerated Diet: advance to your usual diet Interval History: Patient seen and examined. He feels well today with no complaints. Denies chills , chest pain, dyspnea, abdominal pain, N/V/D, dysuria, or leg pain/edema. Hospital course: Mr. Toscano is a 61 year old male with sepsis and bacteremia secondary to acute pylenonephritis on POD #6 s/p right ureteroscopy with stone removal and stent placement. After surgery his temp elevated and BP dropped then he was transferred to the ICU. Blood cultures were positive for frias-sensitive E. coli ( 01/25; 01/26; 01/28) but the final blood culture drawn on 01/30 is now showing no growth. CT of abdomen and pelvis showed no acute changes or abscess formation. He will be sent home on oral Levaquin per ID recommendations for treatment until 02/13/17 (11 more days). He is to follow-up as an out-patient with urology in 2-3 weeks for stent removal. - Time Spent with Patient Total time spent providing and/or coordinating discharge services: - Constitutional Vitals: Temp Pulse Resp BP Pulse Ox 99.6 F 78 16 117/76 93 02/02/17 06:40 02/02/17 06:40 02/02/17 06:40 02/02/17 06:40 02/02/17 06:40 General appearance: Present: cooperative, mild distress, A&O X 3, pleasant, answers questions appropriately - Head Head exam: Present: atraumatic, normocephalic - Eye Eye exam: Present: sclera anicteric - ENT ENT exam: Present: mucous membranes moist - Respiratory Respiratory exam: Present: CTAB. Absent: rales, rhonchi, wheezes - Cardiovascular Cardiovascular exam: Present: RRR, +S1, +S2. Absent: diastolic murmur, systolic murmur - GI/Abdominal GI/Abdominal exam: Present: normal bowel sounds, soft. Absent: distended, rigid , tenderness - Extremities Exam Extremities exam: Present: warm, radial pulses palpable and symmetrical. Absent : pedal edema, tenderness - Neurological Exam Neurological exam: Present: alert, CN II-XII intact, oriented X3, no focal deficits - VTE Documentation of Mechanical Device: Intermittent pneumatic compression device <Gabriel Fernandez - Last Filed: 02/02/17 14:49> Date of Encounter: 02/02/17 Procedures/tests Complete & Pending: Procedures Performed prior 72 hours Category Date Time Status CT abd pelvis w iv no oral [CT] Stat Cat Scan 01/31/17 14:15 Completed EV echocardiogram Routine Y 01/30/17 16:00 Completed Date of admission: 01/26/17 05:36 Primary care physician: [facility] Consults: 01/29/17 15:59 Consult to Infectious Diseases [CONS] Routine Consulting Provider: Infectious Disease Jazmin Reason for Consult: Persistent bacteremia Time Notified: 15:45 Call Completed: Yes 02/01/17 08:18 Consult to Physical Therapy [CONS] Routine Comment: Evaluate, develop and implement POC Reason for Consult: Pt experiencing weakness. 02/01/17 08:20 Consult to Occupational Therapy [CONS] Routine Comment: Evaluate, develop and implement POC Reason for Consult: Pt weak Hospital course: Mr. Toscano is a 61 year old male - Time Spent with Patient Total time spent providing and/or coordinating discharge services: - Constitutional Vitals: Temp Pulse Resp BP Pulse Ox 98.6 F 75 16 103/68 96 02/02/17 10:30 02/02/17 10:30 02/02/17 10:30 02/02/17 10:30 02/02/17 10:30 - Attending Attestation Sepsis secondary to Escherichia coli bacteremia/acute pyelonephritis Continue oral Levaquin per ID I examined this patient and my medical decision-making was reviewed with the Resident Physician. I agree with the documented findings, disposition and treatment plan as described except to the extent set forth below.
[2017-02-02 10:33] VITALS: BP 103/68
[2017-02-02 10:48] LABS: Anaplasma phagocytophilum IgG <1:80 (<1:80); Anaplasma phagocytophilum IgM < 1:16 (< 1:16)
--- NOTE | 2017-02-02 11:21 | Infectious Disease Progress No ---
Date of Encounter: 02/02/17 Time of Encounter: 11:04 - Assessment and Plan (1) Sepsis Status: Acute The patient had three SIRS criteria. Likely secondary to bacteremia and pyelonephritis. Improved. The patient has been afebrile and tachycardia has resolved. He continues to have leukocytosis, but is better today. Blood cultures drawn 01/25/17 x 2 sets, 01/26/17 x 1 set, and 01/28/17 x 2 sets are positive for E. coli. Repeat blood cultures drawn 01/30/17 are NGTD x 2 sets. Repeat urine culture negative. Qualifiers: Sepsis type: Escherichia coli Qualified Code(s): A41.51 - Sepsis due to Escherichia coli [E. coli] (2) Bacteremia Status: Acute Causative organism E. coli, frias-sensitive. Source likely pyelonephritis. CT scan completed at the [facility] showed mild right hydroureteronephrosis with a 3mm stone in the UVJ and perinephric and periureteral stranding. Repeat CT scan of the abdomen 01/29/17 showed moderate bilateral pleural effusions, abdominal ascites, and anasarca concerning for cardiac disease. It also showed diverticulosis without diverticulitis. No other intra-abdominal findings were noted. Repeat CT scan with contrast 01/31/17 did not reveal any new source of infection. Blood cultures drawn 01/25/17 were positive 2/2 sets for E. coli. Repeat blood cultures drawn 01/26 x 1 set and 01/28/17 x 2 sets are positive as well. Additional blood cultures drawn 01/30/17 are NGTD x 2 sets. Antibiotics switched to Rocephin per the primary team. Continue Rocephin 2 grams IV daily. Duration of treatment depends on the clinical picture, but likely 14 days from the first set of negative blood cultures. Can likely transition to oral Levaquin when ready for discharge to complete course of treatment. Treat through 02/13/17. (3) Acute pyelonephritis Status: Acute Location: Right kidney. Causative organism likely E. coli given the blood culture results. Likely secondary to obstructing uterolithiasis. CT A/P done 01/29/17 negative for abscess. Continue antibiotics as above. (4) Ureterolithiasis Status: Acute CT of the abdomen and pelvis completed at the [facility] showed a 3mm obstructing stone in the right UVJ. Urology consulted. Status post right ureteroscopy, basket stone extraction, and right ureteral stent placement 01/26/[address] Mchugh. (5) Ascites Status: Acute Etiology unclear. Incidental finding on the most recent CT scan. Further evaluation and management per the primary team. Qualifiers: Ascites type: other type Qualified Code(s): R18.8 - Other ascites (6) Tobacco abuse Status: Chronic (7) CKD (chronic kidney disease) stage 3, GFR 30-59 ml/min Status: Suspected Unsure of the patient's baseline. Serum creatinine 1.12 today. Will continue to trend and dose-adjust antibiotics as needed. Avoid nephrotoxins as able. - Subjective Interval history: Patient seen and examined. No acute events noted overnight. Patient resting quietly in bed. Patient reports that overall he feels well today. Reports some abdominal discomfort this morning that he thinks is from him starting to eat more. Denies any fevers or chills or rigors. Denies chest pain or shortness of breath. Denies cough. Denies any nausea, vomiting, diarrhea, or constipation. He denies any urinary complaints. He denies any oral thrush or new skin lesions. He states his appetite continues to be good. Infect Dis PN-Objective Data - Labs CBC & Chem 7: 02/02/17 06:49 02/02/17 06:49 Labs: Laboratory Results - last 24 hr 01/30/17 02/02/17 02/02/17 16:26 06:49 06:49 WBC 16.1 H RBC 3.51 L Hgb 10.5 L Hct 32.1 L MCV 91.5 MCH 29.9 MCHC 32.7 RDW 14.0 Plt Count 366 MPV 10.6 Sodium 137 Potassium 4.4 Chloride 107 Carbon Dioxide 25 BUN 13 Creatinine 1.02 Est GFR ( Amer) > 60 Est GFR (Non-Af Amer) > 60 BUN/Creatinine Ratio 13 Glucose 97 Calculated Osmolality 284 Calcium 8.5 L A. phagocytophilum IgG <1:80 A. phagocytophilum IgM < 1:16 E. chaffeensis IgG Ab <1:64 E. chaffeensis IgM Ab < 1:16 Cultures: Cultures 01/31/17 11:40 Urine Culture - Final Urine,Clean Catch No growth. 01/30/17 13:45 Blood Culture - Preliminary Peripheral Venipuncture No growth. 01/30/17 13:40 Blood Culture - Preliminary Peripheral Venipuncture No growth. 01/28/17 10:52 Blood Culture - Final Peripheral Venipuncture Escherichia coli 01/28/17 10:52 Blood Culture - Final Peripheral Venipuncture Escherichia coli 01/26/17 15:44 Blood Culture - Final Peripheral Venipuncture Escherichia coli Serology 01/31/17 01/31/17 01/30/17 Range/Units 16:26 11:40 16:26 Urine Color Yellow (Yellow) Urine Clarity Cloudy A (Clear) Urine pH 6.5 (5.0-8.0) pH Units Ur Specific [place] 1.014 (1.010-1.025) Urine Protein 30 H (Neg-Trace) mg/dL Urine Glucose (UA) Normal (Normal) mg/dL Urine Ketones 40 H (Negative) mg/dL Urine Blood Large H (Negative) Urine Nitrite Negative (Negative) Urine Bilirubin Negative (Negative) Urine Urobilinogen Normal (Normal) mg/dL Ur Leukocyte Esterase Moderate H (Negative) Urine Microscopic RBC 15-30 H (0-3) per hpf Urine Microscopic WBC 50-100 H (0-3) per hpf Ur Squamous Epith Cells Many H (None-Few) per lpf Urine Bacteria None Seen (None-Few) per hpf Hyaline Casts None Seen (None-Few) per lpf Ur Culture Indicated? YES A (NO) Number of Stones Stone Size mm Stone Mass mg Stone Description Stone Composition A. baumannii (PCR) (Not Detect) A. phagocytophilum IgG <1:80 (<1:80) A. phagocytophilum IgM < 1:16 (< 1:16) Lyme Total Antibody negative (Negative) Gricel albicans (PCR) (Not Detect) C. glabrata (PCR) (Not Detect) C. krusei (PCR) (Not Detect) C. parapsilosis (PCR) (Not Detect) C. tropicalis (PCR) (Not Detect) E. chaffeensis IgG Ab <1:64 (<1:64) E. chaffeensis IgM Ab < 1:16 (< 1:16) Enterobacteriac sp PCR (Not Detect) E. cloacae complex PCR (Not Detect) Enterococcus sp PCR (Not Detect) E. coli (PCR) (Not Detect) H. influenzae (PCR) (Not Detect) Klebsiella oxytoca PCR (Not Detect) Klebsiella pneumoniae (Not Detect) List. monocytogenes PCR (Not Detect) N. meningitidis (PCR) (Not Detect) Proteus species (PCR) (Not Detect) Serratia marcescens PCR (Not Detect) Staphylococcus sp PCR (Not Detect) Staph aureus (PCR) (Not Detect) mecA-Methicil Res Gene (Not Detect) Streptococcus sp PCR (Not Detect) Group A Strep DNA (Not Detect) Group B Strep (PCR) (Not Detect) Strep pneumoniae (PCR) (Not Detect) P. aeruginosa (PCR) (Not Detect) Marley/B-Vanco Res Genes (Not Detect) KPC (blaKPC) Detect PCR (Not Detect) 01/28/17 01/26/17 Range/Units 10:52 13:27 Urine Color (Yellow) Urine Clarity (Clear) Urine pH (5.0-8.0) pH Units Ur Specific [place] (1.010-1.025) Urine Protein (Neg-Trace) mg/dL Urine Glucose (UA) (Normal) mg/dL Urine Ketones (Negative) mg/dL Urine Blood (Negative) Urine Nitrite (Negative) Urine Bilirubin (Negative) Urine Urobilinogen (Normal) mg/dL Ur Leukocyte Esterase (Negative) Urine Microscopic RBC (0-3) per hpf Urine Microscopic WBC (0-3) per hpf Ur Squamous Epith Cells (None-Few) per lpf Urine Bacteria (None-Few) per hpf Hyaline Casts (None-Few) per lpf Ur Culture Indicated? (NO) Number of Stones 3 Stone Size 1 TO 4 mm Stone Mass 25 mg Stone Description SEE NOTE Stone Composition SEE NOTE A. baumannii (PCR) Not Detected (Not Detect) A. phagocytophilum IgG (<1:80) A. phagocytophilum IgM (< 1:16) Lyme Total Antibody (Negative) Gricel albicans (PCR) Not Detected (Not Detect) C. glabrata (PCR) Not Detected (Not Detect) C. krusei (PCR) Not Detected (Not Detect) C. parapsilosis (PCR) Not Detected (Not Detect) C. tropicalis (PCR) Not Detected (Not Detect) E. chaffeensis IgG Ab (<1:64) E. chaffeensis IgM Ab (< 1:16) Enterobacteriac sp PCR DETECTED A (Not Detect) E. cloacae complex PCR Not Detected (Not Detect) Enterococcus sp PCR Not Detected (Not Detect) E. coli (PCR) DETECTED A (Not Detect) H. influenzae (PCR) Not Detected (Not Detect) Klebsiella oxytoca PCR Not Detected (Not Detect) Klebsiella pneumoniae Not Detected (Not Detect) List. monocytogenes PCR Not Detected (Not Detect) N. meningitidis (PCR) Not Detected (Not Detect) Proteus species (PCR) Not Detected (Not Detect) Serratia marcescens PCR Not Detected (Not Detect) Staphylococcus sp PCR Not Detected (Not Detect) Staph aureus (PCR) Not Detected (Not Detect) mecA-Methicil Res Gene Not Detected (Not Detect) Streptococcus sp PCR Not Detected (Not Detect) Group A Strep DNA Not Detected (Not Detect) Group B Strep (PCR) Not Detected (Not Detect) Strep pneumoniae (PCR) Not Detected (Not Detect) P. aeruginosa (PCR) Not Detected (Not Detect) Marley/B-Vanco Res Genes Not Detected (Not Detect) KPC (blaKPC) Detect PCR Not Detected (Not Detect) Exam - Constitutional Vitals: Temp Pulse Resp BP Pulse Ox 98.6 F 75 16 103/68 96 02/02/17 10:30 02/02/17 10:30 02/02/17 10:30 02/02/17 10:30 02/02/17 10:30 General appearance: average body habitus, cooperative, no acute distress - Head Head exam: Present: atraumatic, normal inspection, normocephalic - Eye Eye exam: Present: EOMI, normal appearance, PERRL Pupils: Present: normal accommodation - ENT ENT exam: Present: mucous membranes moist - Neck Neck exam: Present: normal inspection - Respiratory Respiratory exam: Present: CTAB. Absent: rales, respiratory distress, rhonchi, wheezes - Cardiovascular Cardiovascular exam: Present: RRR, +S1, +S2 - GI/Abdominal GI/Abdominal exam: Present: normal bowel sounds, soft, tenderness (periumbilical , mild). Absent: distended - Extremities Exam Extremities exam: Present: normal inspection. Absent: joint swelling, pedal edema, tenderness - Neurological Exam Neurological exam: Present: alert, oriented X3, no focal deficits - Psychiatric Psychiatric exam: Present: normal affect, normal mood - Skin Skin exam: Present: dry, intact, normal color, warm - VTE Documentation of Mechanical Device: Intermittent pneumatic compression device Consult Discharge Plan - Plan Additional Instructions: Continue to take antibiotics as prescribed Increase activity and diet as tolerated Follow-up with your PCP Follow-up with Urology in 2-3 weeks for stent removal Return to the hospital if your symptoms return or worsen Referrals: James Mchugh MD [Partnered Physician] - 02/20/17 8:00 am SD,PCP [Primary Care Provider] - Prescriptions: Levofloxacin [Levaquin] 750 mg PO DAILY #11 tablet - Attending Attestation I examined this patient and my medical decision-making was reviewed with the Resident Physician. I agree with the documented findings, disposition and treatment plan as described except to the extent set forth below.
== END 2017-02-02 20:25 | disposition home or self-care (01) | DRG 853 ==
LOC: 3NENU 22:01 → EMEROO 22:01 → 3NENU 01-26 01:12 → SUATTDRO 01-26 05:36 → ICNU 01-26 15:23 → 3ANU 01-31 18:28
PROVIDERS: ADMIT Internal Medicine; ATTEND Internal Medicine